=== PATIENT | female | born 1970 | race Caucasian/White ===

== ENCOUNTER 2022-06-30 17:46 | Emergency (ER) | payer BC, SELFPAY ==
--- NOTE | ~2022-06-30 | CT_ITS ---
EXAMINATION: CT HEAD WITHOUT CONTRAST CLINICAL INFORMATION: Fall. Seizure. COMPARISON: CT head 09/29/2013 TECHNIQUE: Contiguous axial imaging was performed from the skull base to vertex without intravenous administration of contrast. Coronal and sagittal reformatted images are performed at the CT scanner. [This CT examination was performed using dose optimization techniques as appropriate, variously including the following: *Automated exposure control *Adjustment of mA and/or kV according to patient size (this includes techniques or standardized protocols for targeted exams where dose is matched to indication/reason for exam; i.e. extremities or head) *Use of iterative reconstruction technique] DLP: 617 mGy-cm. FINDINGS: There is no evidence of acute intracranial hemorrhage or territorial infarction. No abnormal mass-effect or midline shift is seen. [place] to white matter differentiation is well preserved. No extra-axial fluid collections are identified. The ventricles are normal in size. There is no abnormal attenuation within the brain parenchyma. Vascular calcifications of the internal carotid arteries bilaterally. There is no osseous abnormality. Complete opacification of right sphenoid sinus and near-complete opacification left sphenoid sinus. There are calcifications in both of these sinuses related to the soft tissue likely chronic sinus disease. CT/CT head/brain wo IV con IMPRESSION: 1. No acute intracranial pathology. 2. Sinus disease.
--- NOTE | ~2022-06-30 | XR_ITS ---
EXAMINATION: XR CHEST CLINICAL INFORMATION: Seizure COMPARISON: 09/18/2014 TECHNIQUE: Frontal view of the chest was obtained. FINDINGS: The lungs are well expanded. There is no focal consolidation, edema, or effusion. No pneumothorax. The cardiomediastinal silhouette is within normal limits. No acute osseous abnormality. XR/XR chest 1V IMPRESSION: No acute pulmonary disease.
[2022-06-30 17:54] VITALS: BP 141/69; BP 148/70; PULSE 90; PULSE 96; RESP 16; TEMP 37; O2SAT 97; O2SAT 99; BMI 36.0
--- NOTE | 2022-06-30 19:11 | PC.NURSE ---
assumed care of pt
[2022-06-30 20:25] VITALS: BP 131/80; PULSE 96; RESP 16; TEMP 36.6; O2SAT 96
[2022-06-30 20:41] LABS: MANUAL DIFF FLAG NO
[2022-06-30 20:42] LABS: Basophils Percent Auto 0.3 % (0-2); Eosinophils Absolute Auto 0.1 X10*3/uL (0.0-0.4); Hematocrit 40.5 % (37.0-47.0); Hemoglobin 14.1 g/dl (12.0-16.0); Imm Gran Abs Auto 0.02 X10*3/uL (0.00-0.03); Imm Gran Pct Auto 0.2 % (0.0-0.4); Lymphocytes Percent Auto 28.2 % (20-40); Mean Corpuscular HGB Conc 34.8 g/dl (31.0-35.0); Mean Corpuscular Hemoglobin 29.3 pg (27.0-33.0); Mean Platelet Volume 9.9 fL (9.4-12.3); Monocytes Absolute Auto 0.7 X10*3/uL (0.1-1.2); Monocytes Percent Auto 6.6 % (2-11); Neutrophils Absolute Auto 6.8 x10*3/uL (2.0-8.3); Neutrophils Percent Auto 63.7 % (45-73); Platelet Count 232 X10*3/uL (160-400); Red Blood Count 4.82 X10*6/uL (4.20-5.50); Red Cell Distribution Width 12.9 % (11.0-16.0); White Blood Count 10.7 X10*3/uL (4.8-10.8)
[2022-06-30 20:59] LABS: Anion Gap 15 (12-20); Blood Urea Nitrogen 16 mg/dL (9-16); Calcium 9.5 mg/dL (8.4-10.2); Carbon Dioxide 24 mmol/L (22-29); Chloride 104 mmol/L (96-108); Creatinine Clr Calc Pharmacy 96.9; Estimated Glomerular Filt Rate > 60; Glucose Random 232 mg/dL (60-115); Sodium 139 mmol/L (135-145)
--- NOTE | 2022-06-30 20:59 | PC.NURSE ---
pt resting quietly while service at bedside no apparent distress
--- NOTE | 2022-06-30 21:09 | PC.NURSE ---
prior to today pt states that she hasnt had a seizure in 5 mos; pt states not taking seizure meds in the last few days
[2022-06-30 21:19] LABS: Influenza A PCR NEGATIVE (Negative); Influenza B PCR NEGATIVE (Negative); Resp Syncy Virus RNA Qual PCR NEGATIVE (Negative); SARS COV2 PCR INHOUSE NEGATIVE (Negative)
[2022-06-30 21:44] LABS: Appearance Urine Cloudy; Color Urine Yellow; Glucose Urine UA 500 mg/dL (Negative); Leukocyte Esterase Urine Negative (Negative); Nitrite Urine Negative (Negative); PH 5.5 (5.0-9.0); Specific Gravity - Urine 1.025 (1.005-1.025); Urine Blood Negative (Negative); Urine Ketones 15 mg/dL (Negative); Urine Protein Negative (Neg-Trace)
--- NOTE | 2022-06-30 21:55 | ED.SEIZURE ---
HPI - Seizure General Chief Complaint: Seizure Stated Complaint: Seizures per EMS Time Seen by Provider: 06/30/22 21:18 Source: patient Mode of arrival: EMS Limitations: no limitations History of Present Illness HPI Narrative: Patient with history of seizure disorder, diabetes anxiety on Vimpat and Klonopin missed her 3 doses of Vimpat in last 3 days as she been homeless and unable to get her medication earlier today she had a seizure while coming back from the bathroom fell down hitting her head to the ground had 10 by it and broke her upper incisor, patient did not have any seizure for last 6 months on Vimpat and Klonopin. No fever no chills no cough no other symptoms Seizure History: Yes Place: [facility] Related Data Previous Rx's Medication Instructions Recorded lacosamide 10 mg/mL oral solution 350 mg (35 mL) PO BID #2,100 mL 07/01/22 (Vimpat) Allergies Allergy/AdvReac Type Severity Reaction Status Date / Time No Known Allergies Allergy Verified 06/30/22 18:07 Review of Systems Review of Systems: Yes all other systems are reviewed and are negative [facility] Past Medical History Medical History (Updated 07/01/22 @ 00:18 by Satish Palmer MD) Anxiety disorder Epilepsy Social History Social History Alcohol intake: never Smoked in Last 30 Days: No Use of substances other than those prescribed or required for medical reasons: No Advance Directives: No Advance Directives Information Provided: No Patient : No Physical Exam Vital Signs: Vital Signs: Last Vital Signs Temp 97.9 F 06/30/22 20:25 Pulse 96 06/30/22 20:25 Resp 16 06/30/22 20:25 BP 131/80 06/30/22 20:25 Pulse Ox 96 06/30/22 20:25 O2 Del Method 06/30/22 20:25 BMI result Body Mass Index 36.0 Appearance: Alert. Oriented X3. No acute distress. Eyes: PERRLA, No Nystagmus ENT: Pharynx normal. Oral Mucosa moist small tongue bite at the tip, broken upper central incisor Neck: Normal inspection. Neck supple. CVS: Normal heart rate and rhythm. Pulses normal. Respiratory: No respiratory distress. Equal air entry bilateral, no wheezing/rales/rhonchi Abdomen: Soft and nontender. Bowel sounds are present, no mass palpable, no CVA tenderness Skin: Skin warm and dry. Normal skin color. Normal skin turgor. Extremities: No lower extremity edema. No calf tenderness Neuro: Oriented X 3. No motor deficit. No sensory deficit.No cerebellar signs , cranial nerves II-XII intact Course Reevaluation(s) Reevaluation #1: Patient had generalized tonic clonic seizure lasted for less than a minute patient is with slurred speech and drowsy after the seizure. Patient just received the medications Time: 23:05 Medications Administered Discontinued Medications Generic Name Dose Route Start Last Admin Trade Name Freq PRN Reason Stop Dose Admin Sodium Chloride 1,000 mls @ 999 mls/hr 06/30/22 22:05 07/01/22 00:12 Ns IV 06/30/22 23:05 Infused .Q1H1M ONE Infusion Lacosamide 300 mg 06/30/22 22:02 06/30/22 23:04 Lacosamide 100 Mg Tablet PO 06/30/22 22:03 300 mg ONCE ONE Administration Lorazepam 1 mg 06/30/22 22:02 06/30/22 22:54 Lorazepam 2 Mg/Ml Vial IVPUSH 06/30/22 22:03 1 mg ONCE ONE Administration Medical Decision Making Medical Decision Making [facility] Narrative: Patient with chronic seizure history acting vague homeless having repeated seizures for last 2 days will get the records from [facility] Medical records from [facility] reviewed patient advised to increase the dose of impaired to 350 mg twice daily per neurologist but patient is taking only 300 mg twice daily. Patient will be sent home with new prescription follow-up with urologist head CT scan is negative labs are stable Lab Data [facility] Lab Attestation statement: I reviewed the patient's lab results. 06/30/22 20:35 06/30/22 20:35 Labs: Lab Results 06/30/22 06/30/22 06/30/22 Range/Units 20:35 20:35 20:35 WBC 10.7 (4.8-10.8) X10*3/uL RBC 4.82 (4.20-5.50) X10*6/uL Hgb 14.1 (12.0-16.0) g/dl Hct 40.5 (37.0-47.0) % MCV 84.0 (80.0-98.0) fL MCH 29.3 (27.0-33.0) pg MCHC 34.8 (31.0-35.0) g/dl RDW 12.9 (11.0-16.0) % Plt Count 232 (160-400) X10*3/uL MPV 9.9 (9.4-12.3) fL Immature Gran % (Auto) 0.2 (0.0-0.4) % Neut % (Auto) 63.7 (45-73) % Lymph % (Auto) 28.2 (20-40) % [place] % (Auto) 6.6 (2-11) % Eos % (Auto) 1.0 (0-4) % Baso % (Auto) 0.3 (0-2) % Lymph # (Auto) 3.0 (1.2-4.9) X10*3/uL [place] # (Auto) 0.7 (0.1-1.2) X10*3/uL Eos # (Auto) 0.1 (0.0-0.4) X10*3/uL Baso # (Auto) 0.0 (0.0-0.2) X10*3/uL Abs Immat Gran (auto) 0.02 (0.00-0.03) X10*3/uL Absolute Neuts (auto) 6.8 (2.0-8.3) x10*3/uL Absolute Nucleated RBC 0.000 (0.0-0.012) X10*3/uL Nucleated RBC % (auto) 0.0 (0.0-0.2) /100WBC Sodium 139 (135-145) mmol/L Potassium 4.0 (3.3-5.1) mmol/L Chloride 104 (96-108) mmol/L Carbon Dioxide 24 (22-29) mmol/L Anion Gap 15 (12-20) BUN 16 (9-16) mg/dL Creatinine 0.76 (0.5-1.4) mg/dL Estim Creat Clear Calc 96.9 Estimated GFR > 60 Random Glucose 232 H (60-115) mg/dL Calcium 9.5 (8.4-10.2) mg/dL Urine Color Urine Appearance Urine pH (5.0-9.0) Ur Specific [place] (1.005-1.025) Urine Protein (Neg-Trace) mg/dL Urine Glucose (UA) (Negative) mg/dL Urine Ketones (Negative) mg/dL Urine Blood (Negative) Urine Nitrite (Negative) Ur Leukocyte Esterase (Negative) Influenza Type A (PCR) NEGATIVE (Negative) Influenza Type B (PCR) NEGATIVE (Negative) RSV RNA Qual (PCR) NEGATIVE (Negative) SARS-CoV-2 RNA (RT-PCR) NEGATIVE (Negative) 06/30/22 Range/Units 20:58 WBC (4.8-10.8) X10*3/uL RBC (4.20-5.50) X10*6/uL Hgb (12.0-16.0) g/dl Hct (37.0-47.0) % MCV (80.0-98.0) fL MCH (27.0-33.0) pg MCHC (31.0-35.0) g/dl RDW (11.0-16.0) % Plt Count (160-400) X10*3/uL MPV (9.4-12.3) fL Immature Gran % (Auto) (0.0-0.4) % Neut % (Auto) (45-73) % Lymph % (Auto) (20-40) % [place] % (Auto) (2-11) % Eos % (Auto) (0-4) % Baso % (Auto) (0-2) % Lymph # (Auto) (1.2-4.9) X10*3/uL [place] # (Auto) (0.1-1.2) X10*3/uL Eos # (Auto) (0.0-0.4) X10*3/uL Baso # (Auto) (0.0-0.2) X10*3/uL Abs Immat Gran (auto) (0.00-0.03) X10*3/uL Absolute Neuts (auto) (2.0-8.3) x10*3/uL Absolute Nucleated RBC (0.0-0.012) X10*3/uL Nucleated RBC % (auto) (0.0-0.2) /100WBC Sodium (135-145) mmol/L Potassium (3.3-5.1) mmol/L Chloride (96-108) mmol/L Carbon Dioxide (22-29) mmol/L Anion Gap (12-20) BUN (9-16) mg/dL Creatinine (0.5-1.4) mg/dL Estim Creat Clear Calc Estimated GFR Random Glucose (60-115) mg/dL Calcium (8.4-10.2) mg/dL Urine Color Yellow Urine Appearance Cloudy Urine pH 5.5 (5.0-9.0) Ur Specific [place] 1.025 (1.005-1.025) Urine Protein Negative (Neg-Trace) mg/dL Urine Glucose (UA) 500 H (Negative) mg/dL Urine Ketones 15 (Negative) mg/dL Urine Blood Negative (Negative) Urine Nitrite Negative (Negative) Ur Leukocyte Esterase Negative (Negative) Influenza Type A (PCR) (Negative) Influenza Type B (PCR) (Negative) RSV RNA Qual (PCR) (Negative) SARS-CoV-2 RNA (RT-PCR) (Negative) External Record Review External record reviewed: Inpatient record Patient's records from [facility] reviewed admitted on 04/12/2022 with previous stay in in 03/04 at [facility] for 6 weeks for placement does have history of psychiatric issues including prior history of suicidal ideation patient lacosamide does supposed to be increased to 350 mg twice daily but patient still using 300 mg twice daily awaiting for permanent housing Discharge Plan Discharge Clinical Impression: Epileptic seizure Patient Disposition: Home, Self-Care Instructions: Epilepsy (ED) Additional Instructions: Continue to take Vimpat Increase the dose to 350 mg(35ml) twice daily as instructed by your neurologist Follow-up with PCP/neurologist Prescriptions: New lacosamide [Vimpat] 10 mg/mL solution 350 mg PO BID Qty: 2100 0RF
[2022-06-30] MEDS: LORazepam 2 MG/ML VIAL 1 MG IVPUSH (22:54)
[2022-06-30] MEDS: 0.9 % Sodium Chloride 1,000 ML 999 ML IV (22:55)
[2022-06-30] MEDS: Lacosamide 100 MG TABLET 300 MG PO (23:04)
== END 2022-07-01 00:42 | disposition home or self-care (01) ==
PROVIDERS: Emergency Provider Internal Medicine
DX: G40.909 Epilepsy, unspecified, not intractable, without status epilepticus (principal); Z20.822 Contact with and (suspected) exposure to COVID-19; Z20.828 Contact with and (suspected) exposure to other viral communicable diseases; F41.9 Anxiety disorder, unspecified; E11.9 Type 2 diabetes mellitus without complications; Z79.899 Other long term (current) drug therapy
CPT/HCPCS: 0241U; 36415; 70450; 71045; 80048; 81003; 85025; 96361; 96374; 99284; J2060

== ENCOUNTER 2022-07-02 20:36 | Emergency (ER) | payer BC, MEDICARE, SELFPAY ==
--- NOTE | 2022-07-02 | ECG_ITS ---
Test Reason : SEIZURE Blood Pressure : / mmHG Vent. Rate : 104 BPM Atrial Rate : 104 BPM P-R Int : 154 ms QRS Dur : 078 ms QT Int : 336 ms P-R-T Axes : 053 020 037 degrees QTc Int : 441 ms Sinus tachycardia Otherwise normal ECG When compared with ECG of 25-NOV-2014 15:47, No significant change was found Referred By: Generic ED Physician Electronically Signed By:ORLANDO LAWLER
[2022-07-02 20:49] VITALS: BP 142/68; BP 163/82; PULSE 109; PULSE 90; RESP 20; TEMP 37.1; O2SAT 95
[2022-07-02 20:55] VITALS: BMI 36.0
[2022-07-02 21:23] LABS: Glucose, Whole Blood 366 mg/dL (60-115)
--- NOTE | 2022-07-02 21:26 | ED_ITS ---
HPI - Seizure General Chief Complaint: Seizure Stated Complaint: seizures Time Seen by Provider: 07/02/22 21:17 Source: patient Mode of arrival: ambulatory Limitations: no limitations History of Present Illness HPI Narrative: Patient history of anxiety bipolar disorder and epilepsy on Vimpat supposed to be 350 mg twice daily has problems with home issues but she says that she has a place to stay. Neurologist in [facility]. Was at [facility] for 6 weeks for placement in 03/04 then patient went to [facility] patient was seen here on 2 days ago for same when she had seizure and she fell at tongue bite at the tip of the tongue. Patient was told to increase the dose of the bed to 350 mg twice daily per neurologist last year but she has not done it yet per records patient is noncompliant to medications has some psychogenic issues today she comes here as she had 2 seizures earlier while she is asleep per patient she cannot take the medication as she has tongue bite but she is a ble to eat Seizure History: Yes Related Data Previous Rx's Medication Instructions Recorded lacosamide 10 mg/mL oral solution 350 mg (35 mL) PO BID #2,100 mL 07/01/22 (Vimpat) Allergies Allergy/AdvReac Type Severity Reaction Status Date / Time No Known Allergies Allergy Verified 07/02/22 20:58 Review of Systems Review of Systems: Yes all other systems are reviewed and are negative [facility] Past Medical History Medical History Anxiety disorder Epilepsy Social History Social History Alcohol intake: never Advance Directives: No Advance Directives Information Provided: No Physical Exam Vital Signs: Vital Signs: Last Vital Signs Temp 98.8 F 07/02/22 20:49 Pulse 109 H 07/02/22 20:49 Resp 20 07/02/22 20:49 BP 163/82 H 07/02/22 20:49 Pulse Ox 95 07/02/22 20:49 O2 Del Method 07/02/22 20:49 BMI result Body Mass Index 36.0 Appearance: Alert. Oriented X3. No acute distress. Anxious Eyes: PERRLA, No Nystagmus ENT: Pharynx normal. Oral Mucosa moist healing tongue bite at the tip of the tongue Neck: Normal inspection. Neck supple. No stridor CVS: Normal heart rate and rhythm. Pulses normal. Respiratory: No respiratory distress. Equal air entry bilateral, no wheezing/rales/rhonchi Abdomen: Soft and nontender. Bowel sounds are present, no mass palpable, no CVA tenderness Skin: Skin warm and dry. Normal skin color. Normal skin turgor. Extremities: No lower extremity edema. No calf tenderness Neuro: Oriented X 3. No motor deficit. No sensory deficit.No cerebellar signs , cranial nerves II-XII intact Medications Administered Discontinued Medications Generic Name Dose Route Start Last Admin Trade Name Freq PRN Reason Stop Dose Admin Lacosamide 350 mg 07/02/22 21:26 07/02/22 21:32 Lacosamide 100 Mg Tablet PO 07/02/22 21:27 200 mg ONCE ONE Administration Lorazepam 2 mg 07/02/22 21:48 07/02/22 22:00 Lorazepam 2 Mg/Ml Vial IM 07/02/22 21:49 2 mg STAT STA Administration Medical Decision Making Medical Decision Making [facility] Narrative: Patient with recurrent epilepsy with bipolar anxiety disorder with noncompliance of medication patient was given extra dose of Vimpat a night patient has a place to stay tonight and will follow with neurologist in the morning Lab Data Labs: Lab Results 07/02/22 Range/Units 21:17 POC Glucose 366 H* (60-115) mg/dL Discharge Plan Discharge Clinical Impression: Generalized seizure Patient Disposition: Home, Self-Care Instructions: Recurrent Seizures in Adults (ED) 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
[2022-07-02] MEDS: Lacosamide 100 MG TABLET 350 MG PO (21:32)
--- NOTE | 2022-07-02 21:57 | PC.NURSE ---
patient spit out 150mg dose of the 350mg vimpat she was supposed to receive. patient only received 200mg po. obtaining new order of 150mg from MD in order to give pt full dose. patient gagging up medication saying she cant swallow. airway patent and patient swallowed first 200mg dose with no issues.
[2022-07-02] MEDS: LORazepam 2 MG/ML VIAL IM (22:00)
[2022-07-02] MEDS: Lacosamide 100 MG TABLET 150 MG PO (22:16)
== END 2022-07-02 22:58 | disposition home or self-care (01) ==
PROVIDERS: Emergency Provider Internal Medicine
DX: R56.9 Unspecified convulsions (principal); Z79.899 Other long term (current) drug therapy; Z91.14 Patient's other noncompliance with medication regimen
CPT/HCPCS: 82947; 93005; 96372; 99283; 99284; J2060

== ENCOUNTER 2022-07-11 16:07 | Emergency (ER) | payer BC, MEDICARE, SELFPAY ==
[2022-07-11 16:15] VITALS: BP 168/75; PULSE 87; RESP 16; TEMP 36.8; O2SAT 99; BMI 34.9
--- NOTE | 2022-07-11 16:17 | PC.NURSE ---
51 y/o F BIBA from [facility] with increased anxiety, hypertension, high blood sugar, pseudoseizures, and other complaints. was recently seen here for same. VSS, neuros intact. awaiting Md mendez
--- NOTE | 2022-07-11 16:47 | ED_ITS ---
HPI - General Adult General Chief complaint: General Medical Stated complaint: seizure? Time Seen by Provider: 07/11/22 16:16 Source: patient Mode of arrival: ambulatory History of Present Illness HPI narrative: 51-year-old female with underlying seizure disorder currently being followed at a [facility] Neurology office, Dr. Escobar, and patient is stating that she has continue to take her 350 mg of lacosamide b.i.d. as prescribed. She denies any recent fever, chills and states that she started to have an aura and called 911 letting them know that she was starting to have a seizure. She denies any tongue biting or incontinence at this time and does not appear to be postictal. Related Data Previous Rx's Medication Instructions Recorded lacosamide 10 mg/mL oral solution 350 mg (35 mL) PO BID #2,100 mL 07/01/22 (Vimpat) Allergies Allergy/AdvReac Type Severity Reaction Status Date / Time No Known Allergies Allergy Verified 07/02/22 20:58 Review of Systems Review of Systems: Pertinent positives and negatives as stated in HPI [facility] Past Medical History Source: nursing notes reviewed Medical History Anxiety disorder Epilepsy Social History Social History Alcohol intake: never Advance Directives: No Advance Directives Information Provided: Yes Physical Exam ED Vital Signs: Vital Signs - 24 hr 07/11/22 16:15 Temperature 98.2 F Pulse Rate 87 Respiratory Rate 16 Blood Pressure 168/75 H Pulse Oximetry 99 Oxygen Delivery Method Room Air BMI result Body Mass Index 34.9 VITAL SIGNS: Reviewed. GENERAL: Well developed, well nourished, in no acute distress. HEAD: Normocephalic/atraumatic, no contusions/abrasions EYES: PERRLA, EOMI, no nystagmus OROPHARYNX: no oral lesions noted, posterior pharynx clear, poor dentition, no evidence of oral cavity trauma NECK: Supple, no adenopathy LUNGS: Normal breath sounds. No adventitious sounds or accessory muscle use. SpO2<99> CARDIOVASCULAR: Regular rate and rhythm without noted murmurs ABDOMEN: Soft, non-tender, non-distended with bowel sounds. MUSCULOSKELETAL: No tenderness, deformities, or effusions noted on gross ins pection, there are no injuries noted to the elbows, hands, knees, feet/ankles, face. EXTREMITIES: No cyanosis, clubbing or edema. SKIN: Inspection of the skin reveals no rashes, abrasions/lacerations NEUROLOGIC: Alert and oriented x 4. Strength and sensation to light touch were grossly intact x 4. Medications Administered Discontinued Medications Generic Name Dose Route Start Last Admin Trade Name Freq PRN Reason Stop Dose Admin Insulin Human Lispro 5 unit 07/11/22 18:08 07/11/22 18:31 Insulin Lispro 100 Unit/Ml 3 Ml Vial SUBCUT 07/11/22 18:09 5 unit ONCE ONE Administration Medical Decision Making Medical Decision Making MDM Narrative: This is a 51-year-old female with current stressors in her life to include an ongoing divorce that she characterizes as difficult. She is currently homeless and is receiving [facility] who have placed her in a motel. Patient states that she has plenty of medication and denies any constitutional symptoms and reports compliance with her medication. She did not have any overt evidence of injuries secondary to her self described epileptic event and we will proceed with basic labs to include urinalysis and consult care team to help arrange for transportation back to the motel. There is no indication at this time for further imaging. Patient is noted to be hyperglycemic and states that she ate just prior to coming in. She is a known diabetic and takes insulin injections for her condition. Patient states that she has plenty of medications for both the diabetes and her seizure condition. I will give her referral to follow-up with our neurology department. Differential Diagnosis Please see the discussion above Consult Healthcare Provider Management of the patient was discussed with: Phlebotomy Manager [id number]: Consultation to care team to arrange for transport back to the motel. Lab Data Please see the discussion above 07/11/22 17:09 07/11/22 17:09 Labs: Lab Results 07/11/22 07/11/22 07/11/22 Range/Units 17:09 17:09 17:09 WBC 7.0 (4.8-10.8) X10*3/uL RBC 4.53 (4.20-5.50) X10*6/uL Hgb 13.3 (12.0-16.0) g/dl Hct 39.2 (37.0-47.0) % MCV 86.5 (80.0-98.0) fL MCH 29.4 (27.0-33.0) pg MCHC 33.9 (31.0-35.0) g/dl RDW 13.2 (11.0-16.0) % Plt Count 219 (160-400) X10*3/uL MPV 10.0 (9.4-12.3) fL Immature Gran % (Auto) 0.1 (0.0-0.4) % Neut % (Auto) 53.1 (45-73) % Lymph % (Auto) 37.2 (20-40) % [place] % (Auto) 7.0 (2-11) % Eos % (Auto) 2.0 (0-4) % Baso % (Auto) 0.6 (0-2) % Lymph # (Auto) 2.6 (1.2-4.9) X10*3/uL [place] # (Auto) 0.5 (0.1-1.2) X10*3/uL Eos # (Auto) 0.1 (0.0-0.4) X10*3/uL Baso # (Auto) 0.0 (0.0-0.2) X10*3/uL Abs Immat Gran (auto) 0.01 (0.00-0.03) X10*3/uL Absolute Neuts (auto) 3.7 (2.0-8.3) x10*3/uL Absolute Nucleated RBC 0.000 (0.0-0.012) X10*3/uL Nucleated RBC % (auto) 0.0 (0.0-0.2) /100WBC Sodium 142 (135-145) mmol/L Potassium 4.3 (3.3-5.1) mmol/L Chloride 106 (96-108) mmol/L Carbon Dioxide 27 (22-29) mmol/L Anion Gap 13 (12-20) BUN 8 L (9-16) mg/dL Creatinine 0.74 (0.5-1.4) mg/dL Estim Creat Clear Calc 112.4 Estimated GFR > 60 POC Glucose (60-115) mg/dL Random Glucose 376 H* (60-115) mg/dL Calcium 8.8 D (8.4-10.2) mg/dL Total Bilirubin 0.3 (0.0-1.0) mg/dL AST 21 (5-31) U/L ALT 22 (0-31) U/L Alkaline Phosphatase 196 H (39-117) U/L Total Protein 6.8 (6.5-8.0) g/dL Albumin 4.2 (3.5-5.0) g/dL Urine Color Yellow Urine Appearance Clear Urine pH 6.0 (5.0-9.0) Ur Specific [place] 1.025 (1.005-1.025) Urine Protein Negative (Neg-Trace) mg/dL Urine Glucose (UA) >=1000 H (Negative) mg/dL Urine Ketones Negative (Negative) mg/dL Urine Blood Negative (Negative) Urine Nitrite Negative (Negative) Ur Leukocyte Esterase Negative (Negative) Urine RBC 0-2 (0-2) /HPF Urine WBC 0-5 (0-5) /HPF Ur Squamous Epith Cells 6-10 (0-2) /HPF Urine Bacteria None Seen (None Seen) Hyaline Casts 0-2 (0-2) /LPF Urine Opiates Screen (Not Detect) Urine Fentanyl Screen (Not Detect) Ur Barbiturates Screen (Not Detect) Ur Phencyclidine Scrn (Not Detect) Ur Amphetamines Screen (Not Detect) U Benzodiazepines Scrn (Not Detect) Urine Cocaine Screen (Not Detect) U Marijuana (THC) Screen (Not Detect) 07/11/22 07/11/22 Range/Units 17:09 19:32 WBC (4.8-10.8) X10*3/uL RBC (4.20-5.50) X10*6/uL Hgb (12.0-16.0) g/dl Hct (37.0-47.0) % MCV (80.0-98.0) fL MCH (27.0-33.0) pg MCHC (31.0-35.0) g/dl RDW (11.0-16.0) % Plt Count (160-400) X10*3/uL MPV (9.4-12.3) fL Immature Gran % (Auto) (0.0-0.4) % Neut % (Auto) (45-73) % Lymph % (Auto) (20-40) % [place] % (Auto) (2-11) % Eos % (Auto) (0-4) % Baso % (Auto) (0-2) % Lymph # (Auto) (1.2-4.9) X10*3/uL [place] # (Auto) (0.1-1.2) X10*3/uL Eos # (Auto) (0.0-0.4) X10*3/uL Baso # (Auto) (0.0-0.2) X10*3/uL Abs Immat Gran (auto) (0.00-0.03) X10*3/uL Absolute Neuts (auto) (2.0-8.3) x10*3/uL Absolute Nucleated RBC (0.0-0.012) X10*3/uL Nucleated RBC % (auto) (0.0-0.2) /100WBC Sodium (135-145) mmol/L Potassium (3.3-5.1) mmol/L Chloride (96-108) mmol/L Carbon Dioxide (22-29) mmol/L Anion Gap (12-20) BUN (9-16) mg/dL Creatinine (0.5-1.4) mg/dL Estim Creat Clear Calc Estimated GFR POC Glucose 268 H (60-115) mg/dL Random Glucose (60-115) mg/dL Calcium (8.4-10.2) mg/dL Total Bilirubin (0.0-1.0) mg/dL AST (5-31) U/L ALT (0-31) U/L Alkaline Phosphatase (39-117) U/L Total Protein (6.5-8.0) g/dL Albumin (3.5-5.0) g/dL Urine Color Urine Appearance Urine pH (5.0-9.0) Ur Specific [place] (1.005-1.025) Urine Protein (Neg-Trace) mg/dL Urine Glucose (UA) (Negative) mg/dL Urine Ketones (Negative) mg/dL Urine Blood (Negative) Urine Nitrite (Negative) Ur Leukocyte Esterase (Negative) Urine RBC (0-2) /HPF Urine WBC (0-5) /HPF Ur Squamous Epith Cells (0-2) /HPF Urine Bacteria (None Seen) Hyaline Casts (0-2) /LPF Urine Opiates Screen Not Detected (Not Detect) Urine Fentanyl Screen Not Detected (Not Detect) Ur Barbiturates Screen Not Detected (Not Detect) Ur Phencyclidine Scrn Not Detected (Not Detect) Ur Amphetamines Screen Not Detected (Not Detect) U Benzodiazepines Scrn Not Detected (Not Detect) Urine Cocaine Screen Not Detected (Not Detect) U Marijuana (THC) Screen Not Detected (Not Detect) External Record Review External record reviewed: Outpatient record and Prior outpatient labs Critical Care Time Critical Care Time Critical Care Time: Yes Total Critical Care Time: 30 Attestation: I personally attest to this time spent taking care of the patient. Discharge Plan Discharge Clinical Impression: Seizure, Hyperglycemia due to diabetes mellitus Patient Disposition: Home, Self-Care Instructions: Recurrent Seizures in Adults (ED), Diabetic Hyperglycemia (ED) Additional Instructions: 1. Resume all home medications as prescribed. 2. I have given you a referral to follow-up with our neurology department in case you are having difficult to with your so. However, I strongly recommend that you call the office of your neurologist 1st thing in the morning. Return to the ER for any worsening symptoms. Prescriptions: No Action lacosamide [Vimpat] 10 mg/mL solution 350 mg PO BID Qty: 2100 0RF Referrals: Randal Bergman MD [Physician] - (51-year-old female with recurrent epileptic seizures, currently on lacosamide b.i.d. inconsistent follow-up with Neurology at [facility], Dr. Escobar and suspect this may be due to limitations on transportation.)
[2022-07-11 17:21] LABS: MANUAL DIFF FLAG NO
[2022-07-11 17:24] LABS: Basophils Percent Auto 0.6 % (0-2); Eosinophils Absolute Auto 0.1 X10*3/uL (0.0-0.4); Hematocrit 39.2 % (37.0-47.0); Hemoglobin 13.3 g/dl (12.0-16.0); Imm Gran Abs Auto 0.01 X10*3/uL (0.00-0.03); Imm Gran Pct Auto 0.1 % (0.0-0.4); Lymphocytes Absolute Auto 2.6 X10*3/uL (1.2-4.9); Lymphocytes Percent Auto 37.2 % (20-40); Mean Corpuscular HGB Conc 33.9 g/dl (31.0-35.0); Mean Corpuscular Hemoglobin 29.4 pg (27.0-33.0); Mean Corpuscular Volume 86.5 fL (80.0-98.0); Monocytes Absolute Auto 0.5 X10*3/uL (0.1-1.2); Neutrophils Absolute Auto 3.7 x10*3/uL (2.0-8.3); Neutrophils Percent Auto 53.1 % (45-73); Platelet Count 219 X10*3/uL (160-400); Red Blood Count 4.53 X10*6/uL (4.20-5.50); Red Cell Distribution Width 13.2 % (11.0-16.0)
[2022-07-11 17:26] LABS: Appearance Urine Clear; Color Urine Yellow; Glucose Urine UA >=1000 mg/dL (Negative); Leukocyte Esterase Urine Negative (Negative); Nitrite Urine Negative (Negative); Specific Gravity - Urine 1.025 (1.005-1.025); UMIC TRIGGER UACC YES; Urine Blood Negative (Negative); Urine Ketones Negative (Negative); Urine Protein Negative (Neg-Trace)
[2022-07-11 17:34] LABS: Amphetamine Screen Urine Not Detected (Not Detect); Barbiturates, Urine Not Detected (Not Detect); Benzodiazepines Screen Urine Not Detected (Not Detect); Cannabinoid Screen Urine Not Detected (Not Detect); Cocaine Screen Urine Not Detected (Not Detect); Fentanyl, urine Not Detected (Not Detect); Opiate Screen Urine Not Detected (Not Detect); Phencyclidine Screen Urine Not Detected (Not Detect)
[2022-07-11 17:50] LABS: Bacteria Urine None Seen (None Seen); Hyaline Casts Urine 0-2 /LPF (0-2); RBC Urine 0-2 /HPF (0-2); WBC Urine 0-5 /HPF (0-5)
[2022-07-11 18:03] LABS: Alanine Aminotransferase 22 U/L (0-31); Albumin Level 4.2 g/dL (3.5-5.0); Alkaline Phosphatase 196 U/L (39-117); Anion Gap 13 (12-20); Aspartate Amino Transferase 21 U/L (5-31); Bilirubin Total 0.3 mg/dL (0.0-1.0); Blood Urea Nitrogen 8 mg/dL (9-16); Calcium 8.8 mg/dL (8.4-10.2); Carbon Dioxide 27 mmol/L (22-29); Chloride 106 mmol/L (96-108); Creatinine Clr Calc Pharmacy 112.4; Estimated Glomerular Filt Rate > 60; Glucose Random 376 mg/dL (60-115); Potassium 4.3 mmol/L (3.3-5.1); Sodium 142 mmol/L (135-145); Total Protein 6.8 g/dL (6.5-8.0)
[2022-07-11] MEDS: Insulin Lispro 100 UNIT/ML 3 ML VIAL SUBCUT (18:31)
[2022-07-11 19:36] LABS: Glucose, Whole Blood 268 mg/dL (60-115)
[2022-07-11 23:47] VITALS: BP 142/65; PULSE 79; RESP 17; TEMP 36.4; O2SAT 96
--- NOTE | 2022-07-12 02:16 | PC.NURSE ---
Assumed care of pt. 1900. Pt. resting in bed at that time. Pt. D/C'd, however, pt. reports having no transportation to get home. automatic cigar wrapper tender attempted to get pt. a LYFT ride home, however, no rides were available. Pt. tried calling her brother, however, he didn't answer the phone and she left a message. Will try again for a LYFT at 0600.
[2022-07-12 05:35] LABS: Estimated Average Glucose 220 mg/dL; Hemoglobin A1c % 9.3 %
== END 2022-07-12 06:12 | disposition home or self-care (01) ==
PROVIDERS: Emergency Provider Student in an Organized Health Care Education/Training Program
DX: R56.9 Unspecified convulsions (principal); E11.65 Type 2 diabetes mellitus with hyperglycemia; Z79.899 Other long term (current) drug therapy
CPT/HCPCS: 36415; 80053; 80307; 81001; 82947; 83036; 85025; 99284

== ENCOUNTER 2022-07-28 12:03 | Emergency (ER) | payer BC, MEDICARE, SELFPAY ==
[2022-07-28 12:05] VITALS: BP 134/73; PULSE 86; RESP 20; TEMP 36.7; O2SAT 99; BMI 36.0
--- OUTSIDE RECORDS SUMMARY | 2022-07-28 12:31 | XMS_ITS ---
:1970 Author Care Team Providers Name Role Phone DR. WILLI OWUSU Referring Provider [phone] Allergies None recorded. Medications None recorded. Problems None recorded. Procedures None recorded. Results Lab Results None recorded. Past Encounters None recorded. Social History None recorded. Vaccine List None recorded. Plan of Care Reminders Provider Appointments None recorded. ? ? Lab None recorded. ? ? Referral None recorded. ? ? Procedures None recorded. ? ? Surgeries None recorded. ? ? Imaging None recorded. ? ? Vitals None recorded.
--- NOTE | 2022-07-28 12:54 | ED_ITS ---
HPI - Seizure General Chief Complaint: Seizure Stated Complaint: Poss seizure per EMS Time Seen by Provider: 07/28/22 12:54 Source: patient and EMS Mode of arrival: EMS Limitations: no limitations History of Present Illness HPI Narrative: 51 yo female with history of seizure disorder on Vimpat (follows w/ Neuro at [facility]), history of anxiety on Klonopin who presents to the ER for evaluation of a probable seizure at home. Patient has been feeling unwell for the last couple of days, feeling like his seizure was coming on. She reports today she was feeling dizzy, she felt an aura like a seizure was coming on. She took 2 doses of her Klonopin like her neurologist instructed late on her bed. She states when she woke up she felt weak and dizzy. She felt like she was going to pass out. She was unable to sit at the edge of the bed or stand up. She called 911. She states she usually feels lethargy and tiredness after seizures but usually can walk around. She tried calling her neurologist yesterday when she was feeling off but she has not heard back from them yet. She reports medication compliance with Vimpat. complaint: possible seizure Onset (ago): day(s) Description of Episode: post-event confusion Witnessed: No Trauma: No Seizure History: Yes Possible Precipitating Event: lack of sleep and stress Associated symptoms: weakness Treatments prior to arrival: benzodiazepines Related Data Previous Rx's Medication Instructions Recorded lacosamide 10 mg/mL oral solution 350 mg (35 mL) PO BID #2,100 mL 07/01/22 (Vimpat) Allergies Allergy/AdvReac Type Severity Reaction Status Date / Time No Known Allergies Allergy Verified 07/02/22 20:58 Review of Systems Review of Systems: Yes all other systems are reviewed and are negative [facility], [facility] Past Medical History Medical History Anxiety disorder Epilepsy Social History Social History Alcohol intake: never Smoked in Last 30 Days: No Use of substances other than those prescribed or required for medical reasons: No Advance Directives: No Advance Directives Information Provided: Yes Physical Exam Vital Signs: Vital Signs: Last Vital Signs Temp 98.0 F 07/28/22 12:05 Pulse 83 07/28/22 14:11 Resp 16 07/28/22 14:11 BP 101/67 07/28/22 14:11 Pulse Ox 97 07/28/22 14:11 O2 Del Method 07/28/22 14:11 BMI result Body Mass Index 36.0 Appearance: Alert. Oriented X3. No acute distress. Eyes: Pupils equal, round and reactive to light. ENT: Pharynx normal. Neck: Normal inspection. Neck supple. CVS: Normal heart rate and rhythm. Pulses normal. Respiratory: No respiratory distress. Breath sounds normal. Abdomen: Soft and nontender. +BS x4 Skin: Skin warm and dry. Normal skin color. Normal skin turgor. No rashes. Extremities: No lower extremity edema. Neuro: Oriented X 3. Slowed speech but appropriate. No motor deficit. No sensory deficit. Medical Decision Making Medical Decision Making [facility] Narrative: 51 yo female with history of seizure disorder on Vimpat (follows w/ Neuro at [facility]), history of anxiety on Klonopin, who presents for evaluation status post seizure which occurred at noon today. Labs performed today were unremarkable. Patient is not orthostatic. Discussed with patient that she has had multiple visits to the ER for seizures this year, and that she needs to have close follow up with her neurologist as she may need more testing and medication management. Patient understands and agrees with plan. Differential Diagnosis Differential Diagnoses: The differential diagnosis associated with the presentation includes epilepsy, electrolyte abnormality, dehydration, tonic clonic seizure Lab Data [facility] Lab Attestation statement: I reviewed the patient's lab results. 07/28/22 13:12 07/28/22 13:12 Labs: Lab Results 07/28/22 07/28/22 07/28/22 Range/Units 12:52 12:52 13:12 WBC 8.6 (4.8-10.8) X10*3/uL RBC 4.46 (4.20-5.50) X10*6/uL Hgb 13.1 (12.0-16.0) g/dl Hct 37.1 (37.0-47.0) % MCV 83.2 (80.0-98.0) fL MCH 29.4 (27.0-33.0) pg MCHC 35.3 H (31.0-35.0) g/dl RDW 13.0 (11.0-16.0) % Plt Count 231 (160-400) X10*3/uL MPV 9.6 (9.4-12.3) fL Immature Gran % (Auto) 0.2 (0.0-0.4) % Neut % (Auto) 61.7 (45-73) % Lymph % (Auto) 28.6 (20-40) % [place] % (Auto) 6.5 (2-11) % Eos % (Auto) 2.6 (0-4) % Baso % (Auto) 0.4 (0-2) % Lymph # (Auto) 2.5 (1.2-4.9) X10*3/uL [place] # (Auto) 0.6 (0.1-1.2) X10*3/uL Eos # (Auto) 0.2 (0.0-0.4) X10*3/uL Baso # (Auto) 0.0 (0.0-0.2) X10*3/uL Abs Immat Gran (auto) 0.02 (0.00-0.03) X10*3/uL Absolute Neuts (auto) 5.3 (2.0-8.3) x10*3/uL Absolute Nucleated RBC 0.000 (0.0-0.012) X10*3/uL Nucleated RBC % (auto) 0.0 (0.0-0.2) /100WBC Sodium (135-145) mmol/L Potassium (3.3-5.1) mmol/L Chloride (96-108) mmol/L Carbon Dioxide (22-29) mmol/L Anion Gap (12-20) BUN (9-16) mg/dL Creatinine (0.5-1.4) mg/dL Estim Creat Clear Calc Estimated GFR POC Glucose (60-115) mg/dL Random Glucose (60-115) mg/dL Lactic Acid (0.5-2.0) mmol/L Calcium (8.4-10.2) mg/dL Magnesium (1.6-2.6) mg/dL Total Bilirubin (0.0-1.0) mg/dL Direct Bilirubin (0.0-0.5) mg/dL AST (5-31) U/L ALT (0-31) U/L Alkaline Phosphatase (39-117) U/L Total Creatine Kinase (26-140) U/L Total Protein (6.5-8.0) g/dL Albumin (3.5-5.0) g/dL Urine Color Yellow Urine Appearance Clear Urine pH 7.0 (5.0-9.0) Ur Specific [place] 1.010 (1.005-1.025) Urine Protein Negative (Neg-Trace) mg/dL Urine Glucose (UA) Negative (Negative) mg/dL Urine Ketones Negative (Negative) mg/dL Urine Blood Negative (Negative) Urine Nitrite Negative (Negative) Ur Leukocyte Esterase Negative (Negative) Urine Test NEGATIVE (NEGATIVE) 07/28/22 07/28/22 07/28/22 Range/Units 13:12 13:12 13:54 WBC (4.8-10.8) X10*3/uL RBC (4.20-5.50) X10*6/uL Hgb (12.0-16.0) g/dl Hct (37.0-47.0) % MCV (80.0-98.0) fL MCH (27.0-33.0) pg MCHC (31.0-35.0) g/dl RDW (11.0-16.0) % Plt Count (160-400) X10*3/uL MPV (9.4-12.3) fL Immature Gran % (Auto) (0.0-0.4) % Neut % (Auto) (45-73) % Lymph % (Auto) (20-40) % [place] % (Auto) (2-11) % Eos % (Auto) (0-4) % Baso % (Auto) (0-2) % Lymph # (Auto) (1.2-4.9) X10*3/uL [place] # (Auto) (0.1-1.2) X10*3/uL Eos # (Auto) (0.0-0.4) X10*3/uL Baso # (Auto) (0.0-0.2) X10*3/uL Abs Immat Gran (auto) (0.00-0.03) X10*3/uL Absolute Neuts (auto) (2.0-8.3) x10*3/uL Absolute Nucleated RBC (0.0-0.012) X10*3/uL Nucleated RBC % (auto) (0.0-0.2) /100WBC Sodium 142 (135-145) mmol/L Potassium 4.1 (3.3-5.1) mmol/L Chloride 108 (96-108) mmol/L Carbon Dioxide 22 (22-29) mmol/L Anion Gap 16 (12-20) BUN 10 (9-16) mg/dL Creatinine 0.72 (0.5-1.4) mg/dL Estim Creat Clear Calc 102.3 Estimated GFR > 60 POC Glucose 93 (60-115) mg/dL Random Glucose 93 (60-115) mg/dL Lactic Acid 0.8 (0.5-2.0) mmol/L Calcium 9.1 (8.4-10.2) mg/dL Magnesium 1.8 (1.6-2.6) mg/dL Total Bilirubin 0.5 (0.0-1.0) mg/dL Direct Bilirubin < 0.2 (0.0-0.5) mg/dL AST 25 (5-31) U/L ALT 20 (0-31) U/L Alkaline Phosphatase 150 H (39-117) U/L Total Creatine Kinase 99 (26-140) U/L Total Protein 6.5 (6.5-8.0) g/dL Albumin 4.1 (3.5-5.0) g/dL Urine Color Urine Appearance Urine pH (5.0-9.0) Ur Specific [place] (1.005-1.025) Urine Protein (Neg-Trace) mg/dL Urine Glucose (UA) (Negative) mg/dL Urine Ketones (Negative) mg/dL Urine Blood (Negative) Urine Nitrite (Negative) Ur Leukocyte Esterase (Negative) Urine Test (NEGATIVE) Independent Historian Clinical information obtained from an independent historian. History obtained from or confirmed by: EMS External Record Review External record reviewed: Outpatient record, Prior outpatient labs and Prior outpatient radiology Tests considered The following testing was considered but not selected: CT head considered but not indicated today, no trauma, not a new diagnosis Chronic Conditions Patient?s care impacted by: Other (seizure d/o, anxiety) Critical Care Time Critical Care Time Critical Care Time: No Discharge Plan Discharge Clinical Impression: Seizure disorder, Anxiety Patient Disposition: Home, Self-Care Instructions: Recurrent Seizures in Adults (ED), Anxiety (ED) Additional Instructions: Your lab workup and urine test today were unremarkable. Continue to take your seizure medications as directed. Follow-up with your neurologist as soon as possible. It is important to try to get 6-8 hours of restful sleep per night. If you develop new or worsening symptoms call 911 or come back to the ER for further evaluation. Prescriptions: No Action lacosamide [Vimpat] 10 mg/mL solution 350 mg PO BID Qty: 2100 0RF
[2022-07-28 12:59] LABS: Appearance Urine Clear; Color Urine Yellow; Glucose Urine UA Negative (Negative); Leukocyte Esterase Urine Negative (Negative); Nitrite Urine Negative (Negative); Urine Blood Negative (Negative); Urine Ketones Negative (Negative); Urine Protein Negative (Neg-Trace)
[2022-07-28 13:04] LABS: UPreg QC Valid YES; Urine Pregnancy NEGATIVE (NEGATIVE)
[2022-07-28 13:17] LABS: MANUAL DIFF FLAG NO
[2022-07-28 13:18] LABS: Basophils Percent Auto 0.4 % (0-2); Eosinophils Absolute Auto 0.2 X10*3/uL (0.0-0.4); Eosinophils Percent Auto 2.6 % (0-4); Hematocrit 37.1 % (37.0-47.0); Hemoglobin 13.1 g/dl (12.0-16.0); Imm Gran Abs Auto 0.02 X10*3/uL (0.00-0.03); Imm Gran Pct Auto 0.2 % (0.0-0.4); Lymphocytes Absolute Auto 2.5 X10*3/uL (1.2-4.9); Lymphocytes Percent Auto 28.6 % (20-40); Mean Corpuscular HGB Conc 35.3 g/dl (31.0-35.0); Mean Corpuscular Hemoglobin 29.4 pg (27.0-33.0); Mean Corpuscular Volume 83.2 fL (80.0-98.0); Mean Platelet Volume 9.6 fL (9.4-12.3); Monocytes Absolute Auto 0.6 X10*3/uL (0.1-1.2); Monocytes Percent Auto 6.5 % (2-11); Neutrophils Absolute Auto 5.3 x10*3/uL (2.0-8.3); Neutrophils Percent Auto 61.7 % (45-73); Platelet Count 231 X10*3/uL (160-400); Red Blood Count 4.46 X10*6/uL (4.20-5.50); White Blood Count 8.6 X10*3/uL (4.8-10.8)
[2022-07-28 13:29] LABS: Lactic Acid 0.8 mmol/L (0.5-2.0)
[2022-07-28 13:35] LABS: Alanine Aminotransferase 20 U/L (0-31); Albumin Level 4.1 g/dL (3.5-5.0); Alkaline Phosphatase 150 U/L (39-117); Anion Gap 16 (12-20); Aspartate Amino Transferase 25 U/L (5-31); Bilirubin Direct < 0.2 mg/dL (0.0-0.5); Bilirubin Total 0.5 mg/dL (0.0-1.0); Blood Urea Nitrogen 10 mg/dL (9-16); Calcium 9.1 mg/dL (8.4-10.2); Carbon Dioxide 22 mmol/L (22-29); Chloride 108 mmol/L (96-108); Creatinine Clr Calc Pharmacy 102.3; Estimated Glomerular Filt Rate > 60; Glucose Random 93 mg/dL (60-115); Magnesium 1.8 mg/dL (1.6-2.6); Potassium 4.1 mmol/L (3.3-5.1); Sodium 142 mmol/L (135-145); Total Protein 6.5 g/dL (6.5-8.0)
[2022-07-28 13:56] VITALS: BP 107/59; PULSE 77
[2022-07-28 13:58] VITALS: BP 112/68; PULSE 83
[2022-07-28 14:00] VITALS: BP 101/67; PULSE 96
[2022-07-28 14:08] LABS: Glucose, Whole Blood 93 mg/dL (60-115)
[2022-07-28 14:11] VITALS: BP 101/67; PULSE 83; RESP 16; O2SAT 97
== END 2022-07-28 16:00 | disposition home or self-care (01) ==
PROVIDERS: Physician Assistant; Emergency Provider Emergency Medicine
DX: R56.9 Unspecified convulsions (principal); F41.1 Generalized anxiety disorder; F43.0 Acute stress reaction; Z79.899 Other long term (current) drug therapy
CPT/HCPCS: 36415; 80048; 80076; 81003; 81025; 82550; 82947; 83605; 83735; 85025; 99283; 99284

== ENCOUNTER 2022-07-29 14:25 | Observation (INO) | payer BC, MEDICARE, SELFPAY ==
--- NOTE | ~2022-07-29 | MR_ITS ---
EXAMINATION: MR BRAIN WITHOUT CONTRAST CLINICAL INFORMATION: Breakthrough seizures with vertigo and diplopia. COMPARISON: Head CT from 06/30/2022. Brain MRI dated 02/13/2011. TECHNIQUE: Multiplanar, multisequence imaging of the brain was performed without contrast. FINDINGS: No diffusion abnormalities are identified to suggest an acute or subacute infarct. The ventricles are normal in size. No mass effect or midline shift is seen. Nonspecific mild scattered white matter signal changes have slightly progressed since the previous exam. No extra-axial fluid collections are seen. The brainstem and cerebellum are normal. The gradient refocused acquisition demonstrates no pathologic magnetic susceptibility artifact to indicate underlying acute or chronic blood products. There is [id number] volume loss in the right hippocampus along the mid and posterior portions without associated signal changes. The craniovertebral junction, marrow signal, and midline structures are normal. The major intracranial flow-voids at the level of the [place] of [place] are preserved. The dural venous sinus flow-voids are maintained. The mastoid air cells are well aerated. Severe left sphenoid sinus mucosal thickening with central inspissated secretions which are T1 hyperintense and T2 hypointense visible and new compared to prior imaging. There is additional mild mucosal thickening in the nondominant right sphenoid sinus. The remaining paranasal sinuses are fairly well aerated with a moderate leftward nasal septal deviation. MR/MR head/brain wo con IMPRESSION: No acute intracranial process. Progressed nonspecific mild white matter signal changes as compared to prior imaging. Moderate volume loss in the right hippocampus along the mid and posterior segments compared to the normal left side. No associated signal abnormality evident. Severe left sphenoid sinus mucosal disease with central inspissated secretions; correlate for any underlying acute symptomatology.
--- NOTE | ~2022-07-29 | CT_ITS ---
EXAMINATION: CT HEAD WITHOUT CONTRAST CLINICAL INFORMATION: Fall. Pain in back of head. COMPARISON: Recent brain MRI from 07/30/2022. TECHNIQUE: Contiguous axial imaging was performed from the skullbase to vertex without intravenous administration of contrast. This CT examination was performed using dose optimization techniques as appropriate, variously including the following: *Automated exposure control *Adjustment of mA and/or kV according to patient size (this includes techniques or standardized protocols for targeted exams where dose is matched to indication/reason for exam; i.e. extremities or head) *Use of iterative reconstruction technique DLP: 691 mGy-cm. FINDINGS: There is no evidence of acute intracranial hemorrhage or territorial infarction. No abnormal mass effect or midline shift is seen. No extra-axial fluid collections are identified. The ventricles are normal in size. There is no abnormal attenuation within the brain parenchyma. The osseous structures and soft tissues are normal. The mastoid air cells are well aerated. There is mucosal opacification of the right sphenoid sinus and a fluid level subtotally opacifying the left sphenoid sinus cavity. A 1.1 cm round high attenuation focus in the left sphenoid sinus is nonspecific and may reflect a proteinaceous retention cyst or possibly a mycetoma. CT/CT head/brain wo IV con IMPRESSION: No acute intracranial pathology.
[2022-07-29 14:36] VITALS: BP 152/86; BP 206/88; PULSE 103; PULSE 129; RESP 23; TEMP 36.7; O2SAT 96; O2SAT 97; BMI 37.0
--- NOTE | 2022-07-29 14:53 | ED.SEIZURE ---
HPI - Seizure General Chief Complaint: Seizure Stated Complaint: 3 witnessed seizures per EMS Time Seen by Provider: 07/29/22 14:52 Source: patient and EMS Mode of arrival: EMS Limitations: no limitations History of Present Illness HPI Narrative: 51 yo female with history of seizure disorder on Vimpat, anxiety on Klonopin who presents to the ER from home via EMS with 3 episodes of seizures today. Patient called 911 for 2 reported seizures this morning. When EMS arrived patient had a witnessed seizure lasting 2-3 minutes in duration. She was post-ictal after the event. No injury. She arrives to the ER still confused and post-ictal. She has been compliant with her Vimpat. Has not seen her new Neurologist at [facility]. Admits to lack of sleep. This is patient's 5th ER visit in 30 days for recurrent seizures. MD complaint: seizure Onset (ago): minute(s) Description of Episode: loss of consciousness, tonic-clonic movement and post-event confusion -: minutes(s) (2-3) Witnessed: Yes - by EMS Trauma: No Seizure History: Yes Place: Home Possible Precipitating Event: none Associated symptoms: confusion, weakness and other (headache) Related Data Home Medications Medication Instructions Recorded Confirmed clonazepam 0.5 mg disintegrating 1 tab PO BID 07/29/22 07/29/22 tablet diclofenac sodium 1 % topical gel 1 applic topical QID 07/29/22 07/29/22 granisetron 3.1 mg/24 hour weekly 1 patch topical QWEEK 07/29/22 07/29/22 transdermal patch (Sancuso) insulin degludec 200 unit/mL (3 80 unit subcut BEDTIME 07/29/22 07/29/22 mL) subcutaneous pen (Tresiba FlexTouch U-200 insulin) insulin lispro 200 unit/mL (3 mL) 60 unit subcut TID 07/29/22 07/29/22 subcutaneous pen (Humalog KwikPen U-200 Insulin) lidocaine 5 % topical patch 1 patch topical DAILY PRN Pain 07/29/22 07/29/22 Previous Rx's Medication Instructions Recorded lacosamide 10 mg/mL oral solution 350 mg (35 mL) PO BID #2,100 mL 07/01/22 (Vimpat) Allergies Allergy/AdvReac Type Severity Reaction Status Date / Time No Known Allergies Allergy Verified 07/02/22 20:58 Review of Systems Review of Systems: Yes all other systems are reviewed and are negative [facility] Past Medical History Medical History Anxiety disorder Epilepsy Social History Social History Alcohol intake: never Advance Directives: No Advance Directives Information Provided: Yes Physical Exam Vital Signs: Vital Signs: Last Vital Signs Temp 98.1 F 07/29/22 14:36 Pulse 103 H 07/29/22 14:36 Resp 23 H 07/29/22 14:36 BP 152/86 H 07/29/22 14:36 Pulse Ox 96 07/29/22 14:36 O2 Del Method 07/29/22 14:36 BMI result Body Mass Index 37.0 Appearance: Alert. Oriented X3. No acute distress. Eyes: Pupils equal, round and reactive to light. ENT: Pharynx normal. Neck: Normal inspection. Neck supple. CVS: Normal heart rate and rhythm. Pulses normal. Respiratory: No respiratory distress. Breath sounds normal. Abdomen: Soft and nontender. +BS x4 Skin: Skin warm and dry. Normal skin color. Normal skin turgor. No rashes. Extremities: No lower extremity edema. Neuro: Oriented X 3. Slow to respond, poor memory, remains confused. moves all extremities. nonfocal Medications Administered Discontinued Medications Generic Name Dose Route Start Last Admin Trade Name Freq PRN Reason Stop Dose Admin Levetiracetam 1,000 mg 07/29/22 15:51 07/29/22 16:29 Levetiracetam 500 Mg/5 Ml Vial IV 07/29/22 15:52 1,000 mg NOW STA Administration Medical Decision Making Medical Decision Making MDM Narrative: 51-year-old female with history of seizure disorder on Vimpat, anxiety who presents to the ER for evaluation of recurrent seizures. Patient had 3 seizure episodes today. She did regain consciousness between episodes. Clinical presentation is not consistent with status epilepticus. This is the patient's 5th visit to the emergency room in 1 month for recurrent seizures. She had witnessed seizure event today with tonic clonic activity by EMS along with postictal state. Her seizures are not well controlled. IV Keppra loaded. Will plan for admission for further evaluation. No obvious metabolic derangement seen on her repeat labs today. Differential Diagnosis Differential Diagnoses: The differential diagnosis associated with the presentation includes recurrent breakthrough seizures, status epilepticus, psychogenic nonepileptic seizures, hyponatremia, medication noncompliance Admission/Observation Consideration of admission/observation: Escalation of care including admission/observation considered Consult Healthcare Provider Management of the patient was discussed with: Hospitalist Lab Data MDM Lab Attestation statement: I reviewed the patient's lab results. No major metabolic derangement, hyperglycemia not associated with anion gap acidosis 07/29/22 15:44 07/29/22 15:44 Labs: Lab Results 07/29/22 07/29/22 07/29/22 Range/Units 15:40 15:44 15:44 WBC 5.9 (4.8-10.8) X10*3/uL RBC 4.61 (4.20-5.50) X10*6/uL Hgb 13.3 (12.0-16.0) g/dl Hct 39.1 (37.0-47.0) % MCV 84.8 (80.0-98.0) fL MCH 28.9 (27.0-33.0) pg MCHC 34.0 (31.0-35.0) g/dl RDW 12.9 (11.0-16.0) % Plt Count 229 (160-400) X10*3/uL MPV 9.6 (9.4-12.3) fL Immature Gran % (Auto) 0.3 (0.0-0.4) % Neut % (Auto) 59.8 (45-73) % Lymph % (Auto) 31.1 (20-40) % [place] % (Auto) 6.3 (2-11) % Eos % (Auto) 2.2 (0-4) % Baso % (Auto) 0.3 (0-2) % Lymph # (Auto) 1.8 (1.2-4.9) X10*3/uL [place] # (Auto) 0.4 (0.1-1.2) X10*3/uL Eos # (Auto) 0.1 (0.0-0.4) X10*3/uL Baso # (Auto) 0.0 (0.0-0.2) X10*3/uL Abs Immat Gran (auto) 0.02 (0.00-0.03) X10*3/uL Absolute Neuts (auto) 3.5 (2.0-8.3) x10*3/uL Absolute Nucleated RBC 0.000 (0.0-0.012) X10*3/uL Nucleated RBC % (auto) 0.0 (0.0-0.2) /100WBC Sodium 139 (135-145) mmol/L Potassium 4.5 (3.3-5.1) mmol/L Chloride 104 (96-108) mmol/L Carbon Dioxide 25 (22-29) mmol/L Anion Gap 15 (12-20) BUN 10 (9-16) mg/dL Creatinine 0.85 (0.5-1.4) mg/dL Estim Creat Clear Calc 88.0 Estimated GFR > 60 Random Glucose 337 H (60-115) mg/dL Lactic Acid (0.5-2.0) mmol/L Calcium 9.0 (8.4-10.2) mg/dL Magnesium 1.9 (1.6-2.6) mg/dL Total Bilirubin 0.4 (0.0-1.0) mg/dL Direct Bilirubin < 0.2 (0.0-0.5) mg/dL AST 19 (5-31) U/L ALT 19 (0-31) U/L Alkaline Phosphatase 199 H (39-117) U/L Total Creatine Kinase 87 (26-140) U/L Total Protein 6.7 (6.5-8.0) g/dL Albumin 4.1 (3.5-5.0) g/dL Urine Color Urine Appearance Urine pH (5.0-9.0) Ur Specific [place] (1.005-1.025) Urine Protein (Neg-Trace) mg/dL Urine Glucose (UA) (Negative) mg/dL Urine Ketones (Negative) mg/dL Urine Blood (Negative) Urine Nitrite (Negative) Ur Leukocyte Esterase (Negative) COVID-19 (PEDRO PABLO) Negative (Negative) COVID-19 Clin Com See Note 07/29/22 07/29/22 Range/Units 15:44 17:17 WBC (4.8-10.8) X10*3/uL RBC (4.20-5.50) X10*6/uL Hgb (12.0-16.0) g/dl Hct (37.0-47.0) % MCV (80.0-98.0) fL MCH (27.0-33.0) pg MCHC (31.0-35.0) g/dl RDW (11.0-16.0) % Plt Count (160-400) X10*3/uL MPV (9.4-12.3) fL Immature Gran % (Auto) (0.0-0.4) % Neut % (Auto) (45-73) % Lymph % (Auto) (20-40) % [place] % (Auto) (2-11) % Eos % (Auto) (0-4) % Baso % (Auto) (0-2) % Lymph # (Auto) (1.2-4.9) X10*3/uL [place] # (Auto) (0.1-1.2) X10*3/uL Eos # (Auto) (0.0-0.4) X10*3/uL Baso # (Auto) (0.0-0.2) X10*3/uL Abs Immat Gran (auto) (0.00-0.03) X10*3/uL Absolute Neuts (auto) (2.0-8.3) x10*3/uL Absolute Nucleated RBC (0.0-0.012) X10*3/uL Nucleated RBC % (auto) (0.0-0.2) /100WBC Sodium (135-145) mmol/L Potassium (3.3-5.1) mmol/L Chloride (96-108) mmol/L Carbon Dioxide (22-29) mmol/L Anion Gap (12-20) BUN (9-16) mg/dL Creatinine (0.5-1.4) mg/dL Estim Creat Clear Calc Estimated GFR Random Glucose (60-115) mg/dL Lactic Acid 1.8 (0.5-2.0) mmol/L Calcium (8.4-10.2) mg/dL Magnesium (1.6-2.6) mg/dL Total Bilirubin (0.0-1.0) mg/dL Direct Bilirubin (0.0-0.5) mg/dL AST (5-31) U/L ALT (0-31) U/L Alkaline Phosphatase (39-117) U/L Total Creatine Kinase (26-140) U/L Total Protein (6.5-8.0) g/dL Albumin (3.5-5.0) g/dL Urine Color Yellow Urine Appearance Clear Urine pH 6.5 (5.0-9.0) Ur Specific [place] 1.025 (1.005-1.025) Urine Protein 30 (1+) H (Neg-Trace) mg/dL Urine Glucose (UA) >=1000 H (Negative) mg/dL Urine Ketones Negative (Negative) mg/dL Urine Blood Negative (Negative) Urine Nitrite Negative (Negative) Ur Leukocyte Esterase Negative (Negative) COVID-19 (PEDRO PABLO) (Negative) COVID-19 Clin Com Radiology Impression Discussion of test interpretation with radiology: I have reviewed the radiologist's reading. Radiologist Impression: CT head from 06/30/2022 reviewed, impression is no acute intracranial pathology, sinus disease. Independent Historian Clinical information obtained from an independent historian. History obtained from or confirmed by: EMS External Record Review External record reviewed: Outpatient record and Prior outpatient labs Prescription Management I considered prescription management with: Other (Antiepileptic medication) Chronic Conditions Patient?s care impacted by: Other (Seizure disorder) Critical Care Time Critical Care Time Critical Care Time: No Discharge Plan Discharge Clinical Impression: Recurrent seizures Patient Disposition: Admitted As Inpatient
--- OUTSIDE RECORDS SUMMARY | 2022-07-29 15:47 | XMS_ITS ---
:1970 Author Care Team Providers Name Role Phone DR. WILLI OWUSU Referring Provider [phone] Allergies None recorded. Medications None recorded. Problems [...]
[2022-07-29 15:52] LABS: MANUAL DIFF FLAG NO
[2022-07-29 15:53] LABS: Basophils Percent Auto 0.3 % (0-2); Eosinophils Absolute Auto 0.1 X10*3/uL (0.0-0.4); Eosinophils Percent Auto 2.2 % (0-4); Hematocrit 39.1 % (37.0-47.0); Hemoglobin 13.3 g/dl (12.0-16.0); Imm Gran Abs Auto 0.02 X10*3/uL (0.00-0.03); Imm Gran Pct Auto 0.3 % (0.0-0.4); Lymphocytes Absolute Auto 1.8 X10*3/uL (1.2-4.9); Lymphocytes Percent Auto 31.1 % (20-40); Mean Corpuscular Hemoglobin 28.9 pg (27.0-33.0); Mean Corpuscular Volume 84.8 fL (80.0-98.0); Mean Platelet Volume 9.6 fL (9.4-12.3); Monocytes Absolute Auto 0.4 X10*3/uL (0.1-1.2); Monocytes Percent Auto 6.3 % (2-11); Neutrophils Absolute Auto 3.5 x10*3/uL (2.0-8.3); Neutrophils Percent Auto 59.8 % (45-73); Platelet Count 229 X10*3/uL (160-400); Red Blood Count 4.61 X10*6/uL (4.20-5.50); Red Cell Distribution Width 12.9 % (11.0-16.0); White Blood Count 5.9 X10*3/uL (4.8-10.8)
[2022-07-29 16:05] LABS: Lactic Acid 1.8 mmol/L (0.5-2.0)
[2022-07-29 16:06] LABS: COVID-19 Test Negative (Negative); IDNOW Serial# 6674DD1D
[2022-07-29 16:09] LABS: Alanine Aminotransferase 19 U/L (0-31); Albumin Level 4.1 g/dL (3.5-5.0); Alkaline Phosphatase 199 U/L (39-117); Anion Gap 15 (12-20); Aspartate Amino Transferase 19 U/L (5-31); Bilirubin Direct < 0.2 mg/dL (0.0-0.5); Bilirubin Total 0.4 mg/dL (0.0-1.0); Blood Urea Nitrogen 10 mg/dL (9-16); Carbon Dioxide 25 mmol/L (22-29); Chloride 104 mmol/L (96-108); Estimated Glomerular Filt Rate > 60; Glucose Random 337 mg/dL (60-115); Magnesium 1.9 mg/dL (1.6-2.6); Potassium 4.5 mmol/L (3.3-5.1); Sodium 139 mmol/L (135-145); Total Protein 6.7 g/dL (6.5-8.0)
[2022-07-29] MEDS: levETIRAcetam 500 MG/5 ML VIAL 1000 MG IV (16:29)
[2022-07-29 17:29] LABS: Appearance Urine Clear; Color Urine Yellow; Glucose Urine UA >=1000 mg/dL (Negative); Leukocyte Esterase Urine Negative (Negative); Nitrite Urine Negative (Negative); PH 6.5 (5.0-9.0); Specific Gravity - Urine 1.025 (1.005-1.025); UMIC TRIGGER UACC YES; Urine Blood Negative (Negative); Urine Ketones Negative (Negative); Urine Protein 30 (1+) mg/dL (Neg-Trace)
--- NOTE | 2022-07-29 17:29 | PHA.MEDREC ---
Pharmacy Consult ? Medication Reconciliation Pharmacy has completed the medication reconciliation.
[2022-07-29 17:34] LABS: Bacteria Urine None Seen (None Seen); Hyaline Casts Urine 0-2 /LPF (0-2); RBC Urine 0-2 /HPF (0-2); WBC Urine 0-5 /HPF (0-5)
--- NOTE | 2022-07-29 19:31 | P.HPHOSP_ITS ---
History of Present Illness Date of Service: 07/29/22 Attending physician on admission: Malik Lux Chief Complaint: seizure 51-year-old female with history of insulin-dependent type 2 diabetes, anxiety, dysphagia, vertigo, and temporal lobe epilepsy presents to the ED for evaluation of breakthrough seizures. The patient follows with Neurology at [facility] and has been taking Vimpat which had previously been controlling her seizures well. However she states she is going through a divorce from her with increased stress and poor sleep and for the last 2 months has been experiencing increase in seizure activity. She states she gets both absence and tonic clonic seizures. She does not drive. She states she has she has also been having an increase in vertigo episodes associated with diplopia that occur randomly rather than with head movements or position changes. She denies any gait instability. On arrival, vital signs stable. Hematology studies unremarkable. Renal f unction and electrolyte levels normal. Glucose 337. Lactic acid 1.8. Urinalysis with significant glucose and 1+ protein, otherwise unremarkable. In the ED, patient loaded with Keppra. To be observed overnight for breakthrough seizures. Review of Systems Review of Systems: Yes all other systems are reviewed and are negative [facility] Medical History (Updated 07/29/22 @ 19:41 by MOUNA Bradshaw) Anxiety disorder Insulin dependent type 2 diabetes mellitus Temporal lobe epilepsy Vertigo Social History Alcohol intake: never Advance Directives: No Advance Directives Information Provided: Yes Meds Allergies Allergy/AdvReac Type Severity Reaction Status Date / Time No Known Allergies Allergy Verified 07/02/22 20:58 Active Medications: Current Medications Acetaminophen (Acetaminophen 325 Mg Tablet) 650 mg PO Q6H PRN PRN Reason: Pain, Mild (Pain Scale 1-3) Enoxaparin Sodium (Enoxaparin Sodium 40 Mg/0.4 Ml Syringe) 40 mg SUBCUT Q24H ISIDRA Glucose (Glucose Gel 15 Gm Gel..Gram.) 15 gm PO Q15M PRN; Protocol PRN Reason: per Hypoglycemia Standing Ord. Dextrose (D10) 250 mls @ 750 mls/hr IV Q15M PRN; Protocol PRN Reason: per Hypoglycemia Standing Ord. Insulin Human Lispro (Insulin Lispro 100 Unit/Ml 3 Ml Vial) 0 unit SUBCUT QIDACHS ISIDRA; Protocol Ondansetron HCl (Ondansetron Hcl 4 Mg/2 Ml Vial) 4 mg IVPUSH Q8H PRN PRN Reason: Nausea and Vomiting Pharmacy Consult (Consult Rx Perform Med Rec) 1 each MISCELLANE ONCE PRN PRN Reason: Consult order Senna (Sennosides 8.6 Mg Tablet) 17.2 mg PO BEDTIME PRN PRN Reason: Constipation Sodium Chloride (0.9 % Sodium Chloride Flush 3 Ml Syringe) 3 ml IVFLUSH [facility] Trazodone HCl (Trazodone Hcl 50 Mg Tablet) 50 mg PO BEDTIME PRN PRN Reason: Insomnia Home Medications Medication Instructions Recorded Confirmed Last Taken Type clonazepam 0.5 mg disintegrating 1 tab PO BID 07/29/22 07/29/22 Unknown History tablet diclofenac sodium 1 % topical gel 1 applic topical QID 07/29/22 07/29/22 Unknown History granisetron 3.1 mg/24 hour weekly 1 patch topical QWEEK 07/29/22 07/29/22 Unknown History transdermal patch (Sancuso) insulin degludec 200 unit/mL (3 80 unit subcut BEDTIME 07/29/22 07/29/22 Unknown History mL) subcutaneous pen (Tresiba FlexTouch U-200 insulin) insulin lispro 200 unit/mL (3 mL) 60 unit subcut TID 07/29/22 07/29/22 Unknown History subcutaneous pen (Humalog KwikPen U-200 Insulin) lidocaine 5 % topical patch 1 patch topical DAILY PRN Pain 07/29/22 07/29/22 Unknown History Physical Exam Vital Signs and Narrative: Vital Signs: Last Vital Signs Temp 98.1 F 07/29/22 14:36 Pulse 103 H 07/29/22 14:36 Resp 23 H 07/29/22 14:36 BP 152/86 H 07/29/22 14:36 Pulse Ox 96 07/29/22 14:36 O2 Del Method 07/29/22 14:36 BMI result Body Mass Index 37.0 Constitutional - Awake and Alert, No apparent distress Eyes - PERRLA, EOMI Cardiovascular - S1S2, RRR, No edema Respiratory - Normal lung expansion, Normal respiratory effort, No respiratory distress, CTA bilaterally Gastrointestinal - NT / ND; +BS; No rebound or guarding Extremities - no calf tenderness bilaterally, no swelling Skin - Warm/Dry Neurological - Alert & oriented x3, CN II-XII in tact, 5/5 strength BUE and BLE Psychological - Appropriate affect Results Labs 07/29/22 15:44 07/29/22 15:44 Labs: Laboratory Results - last 24 hr 07/29/22 07/29/22 07/29/22 15:40 15:44 15:44 MCV 84.8 MCH 28.9 MCHC 34.0 RDW 12.9 Plt Count 229 MPV 9.6 Immature Gran % (Auto) 0.3 Neut % (Auto) 59.8 Lymph % (Auto) 31.1 [place] % (Auto) 6.3 Eos % (Auto) 2.2 Baso % (Auto) 0.3 Lymph # (Auto) 1.8 [place] # (Auto) 0.4 Eos # (Auto) 0.1 Baso # (Auto) 0.0 Abs Immat Gran (auto) 0.02 Absolute Neuts (auto) 3.5 Absolute Nucleated RBC 0.000 Nucleated RBC % (auto) 0.0 Anion Gap 15 Estim Creat Clear Calc 88.0 Estimated GFR > 60 Random Glucose 337 H Lactic Acid Calcium 9.0 Magnesium 1.9 Total Bilirubin 0.4 Direct Bilirubin < 0.2 AST 19 ALT 19 Alkaline Phosphatase 199 H Total Creatine Kinase 87 Total Protein 6.7 Albumin 4.1 Urine Color Urine Appearance Urine pH Ur Specific [place] Urine Protein Urine Glucose (UA) Urine Ketones Urine Blood Urine Nitrite Ur Leukocyte Esterase Urine RBC Urine WBC Ur Squamous Epith Cells Urine Bacteria Hyaline Casts COVID-19 (PEDRO PABLO) Negative COVID-19 Clin Com See Note 07/29/22 07/29/22 15:44 17:17 MCV MCH MCHC RDW Plt Count MPV Immature Gran % (Auto) Neut % (Auto) Lymph % (Auto) [place] % (Auto) Eos % (Auto) Baso % (Auto) Lymph # (Auto) [place] # (Auto) Eos # (Auto) Baso # (Auto) Abs Immat Gran (auto) Absolute Neuts (auto) Absolute Nucleated RBC Nucleated RBC % (auto) Anion Gap Estim Creat Clear Calc Estimated GFR Random Glucose Lactic Acid 1.8 Calcium Magnesium Total Bilirubin Direct Bilirubin AST ALT Alkaline Phosphatase Total Creatine Kinase Total Protein Albumin Urine Color Yellow Urine Appearance Clear Urine pH 6.5 Ur Specific [place] 1.025 Urine Protein 30 (1+) H Urine Glucose (UA) >=1000 H Urine Ketones Negative Urine Blood Negative Urine Nitrite Negative Ur Leukocyte Esterase Negative Urine RBC 0-2 Urine WBC 0-5 Ur Squamous Epith Cells 3-5 Urine Bacteria None Seen Hyaline Casts 0-2 COVID-19 (PEDRO PABLO) COVID-19 Clin Com Assessment and Plan (1) Recurrent seizures: Status: Acute Plan 51-year-old female with history of insulin-dependent type 2 diabetes, anxiety, dysphagia, vertigo, and temporal lobe epilepsy to be observed for breakthrough seizure activity # temporal lobe epilepsy -had been well managed on Vimpat, but increased stress and poorly sleep over last 2 months has resulted in increased seizure activity-both tonic-clonic and absence -loaded with Keppra. Continue Keppra 500 mg b.i.d. -continue Vimpat -seizure precautions -appreciate neurology input- will need outpt follow up as has no transportation to [facility] where previous neurologist office was located # vertigo with diplopia -not consistent with BPPV -given increased seizure activity, will also check MRI brain -appreciate Neuro input -meclizine p.r.n. # uncontrolled insulin-dependent type 2 diabetes with hyperglycemia -reports last hemoglobin A1c was around 10.0 -dose adjusted basal insulin -Humalog on sliding scale -POC glucose -diabetic diet # dysphagia- chronic -pills in applesauce/putting -ground/mechanical diet # severe obesity -weight loss efforts encouraged DVT prophylaxis-Lovenox Full code Time Spent With Patient Time: Total time managing care of this patient today ____ minutes. Quality Stroke Does the patient have a stroke diagnosis?: No VTE Prior VTE?: No VTE Risk Level:: Medical - moderate - high VTE Device Contraindication: Treatment Not Indicated VTE Drug Contraindication: N/A - Med Ordered
[2022-07-29 19:41] VITALS: BP 124/66; PULSE 84; RESP 16; TEMP 36.7; O2SAT 96
[2022-07-29] MEDS: Acetaminophen 325 MG TABLET 650 MG PO (19:49)
[2022-07-29] MEDS: Enoxaparin Sodium 40 MG/0.4 ML SYRINGE SUBCUT (19:50)
--- NOTE | 2022-07-29 19:54 | HE.PHANOTE ---
Patient on Vimpat 350 mg oral solution BID at home. Spoke with MOUNA Cornejo as vimpat oral solution is not on formulary. Patient is willing to try tablets however the only formulary dose is Vimpat 100 mg. Per MOUNA Cornejo will increase dose to Vimpat 400 mg tablets BID
[2022-07-29] MEDS: ondansetron HCL 4 MG/2 ML VIAL IVPUSH (19:55)
--- NOTE | 2022-07-29 19:57 | PC.NURSE ---
Assumed care of pt. Pt aox3 resting at the bedside in no apparent distress. Breaths are even, regular, and unlabored, with equal chest rises. NSR on monitor with HR 84. Reports headache and abd discomfort, 9/10. PO meds crushed and given with chocolate ice cream as pt reports difficulty swallowing pills. Medicated as ordered. Pt tolerated well. Seizure pads in place. Pending bed assignment. Pt aware of plan of care. Will continue to monitor.
--- NOTE | 2022-07-29 20:18 | PC.NURSE ---
RN to RN report given to SAVANNAH Boston. Pt being transferred to room 359 and aware of plan.
[2022-07-29 20:38] VITALS: BP 142/67; PULSE 83; RESP 18; TEMP 36.8; O2SAT 98
[2022-07-29 20:57] LABS: Glucose, Whole Blood 269 mg/dL (60-115)
[2022-07-29] MEDS: clonazePAM 0.5 MG TABLET PO (22:28)
[2022-07-29] MEDS: Insulin Lispro 100 UNIT/ML 3 ML VIAL SUBCUT (22:28)
[2022-07-29] MEDS: Lacosamide 100 MG TABLET 400 MG PO (22:28)
[2022-07-29] MEDS: Insulin Glargine,Hum.rec.anlog 100 UNIT/ML 10 ML VIAL 46 UNIT SUBCUT (22:30)
[2022-07-29] MEDS: 0.9 % Sodium Chloride Flush 3 ML SYRINGE IVFLUSH (22:43)
[2022-07-29 23:45] VITALS: BP 121/67; PULSE 82; RESP 17; TEMP 36.2; O2SAT 96
[2022-07-29 23:46] VITALS: BMI 37.0
[2022-07-30 03:03] VITALS: BP 116/61; PULSE 73; RESP 18; TEMP 36; O2SAT 94
[2022-07-30] MEDS: levETIRAcetam in NaCl (iso-os) 500 MG/100 ML PIGGYBACK 400 MG IV ×2 (04:56→16:54)
[2022-07-30 06:29] LABS: MANUAL DIFF FLAG NO
[2022-07-30 06:39] LABS: Basophils Percent Auto 0.5 % (0-2); Eosinophils Absolute Auto 0.2 X10*3/uL (0.0-0.4); Eosinophils Percent Auto 2.7 % (0-4); Hematocrit 37.6 % (37.0-47.0); Hemoglobin 12.5 g/dl (12.0-16.0); Imm Gran Abs Auto 0.02 X10*3/uL (0.00-0.03); Imm Gran Pct Auto 0.3 % (0.0-0.4); Lymphocytes Absolute Auto 3.1 X10*3/uL (1.2-4.9); Mean Corpuscular HGB Conc 33.2 g/dl (31.0-35.0); Mean Corpuscular Hemoglobin 29.2 pg (27.0-33.0); Mean Corpuscular Volume 87.9 fL (80.0-98.0); Mean Platelet Volume 10.4 fL (9.4-12.3); Monocytes Absolute Auto 0.5 X10*3/uL (0.1-1.2); Monocytes Percent Auto 7.8 % (2-11); Neutrophils Absolute Auto 2.8 x10*3/uL (2.0-8.3); Neutrophils Percent Auto 42.7 % (45-73); Platelet Count 208 X10*3/uL (160-400); Red Blood Count 4.28 X10*6/uL (4.20-5.50); White Blood Count 6.6 X10*3/uL (4.8-10.8)
[2022-07-30 07:12] LABS: Anion Gap 15 (12-20); Blood Urea Nitrogen 12 mg/dL (9-16); Calcium 8.8 mg/dL (8.4-10.2); Carbon Dioxide 22 mmol/L (22-29); Chloride 107 mmol/L (96-108); Creatinine Clr Calc Pharmacy 102.4; Estimated Glomerular Filt Rate > 60; Glucose Random 240 mg/dL (60-115); Potassium 4.2 mmol/L (3.3-5.1); Sodium 140 mmol/L (135-145)
--- NOTE | 2022-07-30 07:33 | P.PNIM_ITS ---
Subjective Subjective Date of Service: 07/30/22 Interval History: f/u on recurrent seizures interval history: no seizure this morning or overnight Physical Exam Vital Signs: Vital Signs: Last Vital Signs Temp 96.8 F 07/30/22 03:03 Pulse 73 07/30/22 03:03 Resp 18 07/30/22 03:03 BP 116/61 07/30/22 03:03 Pulse Ox 94 07/30/22 03:03 O2 Del Method 07/30/22 03:03 BMI result Body Mass Index 37.0 Const: Other: Constitutional - Awake and Alert, No apparent distress Eyes - PERRLA, EOMI Cardiovascular - S1S2, RRR, No edema Respiratory - Normal lung expansion, Normal respiratory effort, No respiratory distress, CTA bilaterally Gastrointestinal - NT / ND; +BS; No rebound or guarding Extremities - no calf tenderness bilaterally, no swelling Skin - Warm/Dry Neurological - Alert & oriented x3, CN II-XII in tact, 5/5 strength BUE and BLE Psychological - Appropriate affect Objective Data Active Medications Acetaminophen (Acetaminophen 325 Mg Tablet) 650 mg PO Q6H PRN PRN Reason: Pain, Mild (Pain Scale 1-3) Last Admin: 07/29/22 19:49 Dose: 650 mg Documented By: STAR Clonazepam (Clonazepam 0.5 Mg Tablet) 0.5 mg PO BID [facility] Last Admin: 07/29/22 22:28 Dose: 0.5 mg Documented By: JUSTIN Enoxaparin Sodium (Enoxaparin Sodium 40 Mg/0.4 Ml Syringe) 40 mg SUBCUT Q24H [facility] Last Admin: 07/29/22 19:50 Dose: 40 mg Documented By: STAR Glucose (Glucose Gel 15 Gm Gel..Gram.) 15 gm PO Q15M PRN; Protocol PRN Reason: per Hypoglycemia Standing Ord. Dextrose (D10) 250 mls @ 750 mls/hr IV Q15M PRN; Protocol PRN Reason: per Hypoglycemia Standing Ord. Levetiracetam (Keppra) 500 mg in 100 mls @ 400 mls/hr IV Q12H [facility] Last Infusion: 07/30/22 05:15 Dose: 0 mls/hr Documented By: JUSTIN Insulin Glargine (Insulin Glargine,Hum.Rec.Anlog 100 Unit/Ml 10 Ml Vial) 46 unit SUBCUT BEDTIME [facility] Last Admin: 07/29/22 22:30 Dose: 46 unit Documented By: JUSTIN Insulin Human Lispro (Insulin Lispro 100 Unit/Ml 3 Ml Vial) 0 unit SUBCUT QIDACHS [facility]; Protocol Last Admin: 07/29/22 22:28 Dose: 6 unit Documented By: JUSTIN Lacosamide (Lacosamide 100 Mg Tablet) 400 mg PO BID [facility] Last Admin: 07/29/22 22:28 Dose: 400 mg Documented By: JUSTIN Comments: new admit Lidocaine (Lidocaine 4 % Patch Adh..Patch) 1 patch TRANSDERMA DAILY PRN PRN Reason: back pain Meclizine HCl (Meclizine Hcl 25 Mg Tablet) 25 mg PO Q8H PRN PRN Reason: Vertigo Ondansetron HCl (Ondansetron Hcl 4 Mg/2 Ml Vial) 4 mg IVPUSH Q8H PRN PRN Reason: Nausea and Vomiting Last Admin: 07/29/22 19:55 Dose: 4 mg Documented By: STAR Pharmacy Consult (Consult Rx Perform Med Rec) 1 each MISCELLANE ONCE PRN PRN Reason: Consult order Senna (Sennosides 8.6 Mg Tablet) 17.2 mg PO BEDTIME PRN PRN Reason: Constipation Sodium Chloride (0.9 % Sodium Chloride Flush 3 Ml Syringe) [facility] Last Admin: 07/29/22 22:43 Dose: 3 ml Documented By: JUSTIN Trazodone HCl (Trazodone Hcl 50 Mg Tablet) 50 mg PO BEDTIME PRN PRN Reason: Insomnia Labs 07/30/22 05:45 07/30/22 05:45 Labs: Laboratory Results - last 24 hr 07/29/22 07/29/22 07/29/22 15:40 15:44 15:44 MCV 84.8 MCH 28.9 MCHC 34.0 RDW 12.9 Plt Count 229 MPV 9.6 Immature Gran % (Auto) 0.3 Neut % (Auto) 59.8 Lymph % (Auto) 31.1 Cottle % (Auto) 6.3 Eos % (Auto) 2.2 Baso % (Auto) 0.3 Lymph # (Auto) 1.8 Cottle # (Auto) 0.4 Eos # (Auto) 0.1 Baso # (Auto) 0.0 Abs Immat Gran (auto) 0.02 Absolute Neuts (auto) 3.5 Absolute Nucleated RBC 0.000 Nucleated RBC % (auto) 0.0 Anion Gap 15 Estim Creat Clear Calc 88.0 Estimated GFR > 60 POC Glucose Random Glucose 337 H Lactic Acid Calcium 9.0 Magnesium 1.9 Total Bilirubin 0.4 Direct Bilirubin < 0.2 AST 19 ALT 19 Alkaline Phosphatase 199 H Total Creatine Kinase 87 Total Protein 6.7 Albumin 4.1 Urine Color Urine Appearance Urine pH Ur Specific [place] Urine Protein Urine Glucose (UA) Urine Ketones Urine Blood Urine Nitrite Ur Leukocyte Esterase Urine RBC Urine WBC Ur Squamous Epith Cells Urine Bacteria Hyaline Casts COVID-19 ([facility]) Negative COVID-19 Clin Com See Note 07/29/22 07/29/22 07/29/22 15:44 17:17 20:37 MCV MCH MCHC RDW Plt Count MPV Immature Gran % (Auto) Neut % (Auto) Lymph % (Auto) Cottle % (Auto) Eos % (Auto) Baso % (Auto) Lymph # (Auto) Cottle # (Auto) Eos # (Auto) Baso # (Auto) Abs Immat Gran (auto) Absolute Neuts (auto) Absolute Nucleated RBC Nucleated RBC % (auto) Anion Gap Estim Creat Clear Calc Estimated GFR POC Glucose 269 H Random Glucose Lactic Acid 1.8 Calcium Magnesium Total Bilirubin Direct Bilirubin AST ALT Alkaline Phosphatase Total Creatine Kinase Total Protein Albumin Urine Color Yellow Urine Appearance Clear Urine pH 6.5 Ur Specific [place] 1.025 Urine Protein 30 (1+) H Urine Glucose (UA) >=1000 H Urine Ketones Negative Urine Blood Negative Urine Nitrite Negative Ur Leukocyte Esterase Negative Urine RBC 0-2 Urine WBC 0-5 Ur Squamous Epith Cells 3-5 Urine Bacteria None Seen Hyaline Casts 0-2 COVID-19 ([facility]) COVID-19 Clin Com 07/30/22 07/30/22 05:45 05:45 MCV 87.9 MCH 29.2 MCHC 33.2 RDW 13.0 Plt Count 208 MPV 10.4 Immature Gran % (Auto) 0.3 Neut % (Auto) 42.7 L Lymph % (Auto) 46.0 H Cottle % (Auto) 7.8 Eos % (Auto) 2.7 Baso % (Auto) 0.5 Lymph # (Auto) 3.1 Cottle # (Auto) 0.5 Eos # (Auto) 0.2 Baso # (Auto) 0.0 Abs Immat Gran (auto) 0.02 Absolute Neuts (auto) 2.8 Absolute Nucleated RBC 0.000 Nucleated RBC % (auto) 0.0 Anion Gap 15 Estim Creat Clear Calc 102.4 Estimated GFR > 60 POC Glucose Random Glucose 240 H Lactic Acid Calcium 8.8 Magnesium Total Bilirubin Direct Bilirubin AST ALT Alkaline Phosphatase Total Creatine Kinase Total Protein Albumin Urine Color Urine Appearance Urine pH Ur Specific [place] Urine Protein Urine Glucose (UA) Urine Ketones Urine Blood Urine Nitrite Ur Leukocyte Esterase Urine RBC Urine WBC Ur Squamous Epith Cells Urine Bacteria Hyaline Casts COVID-19 ([facility]) COVID-19 Clin Com Assessment and Plan (1) Recurrent seizures: Status: Acute Plan 51-year-old female with history of insulin-dependent type 2 diabetes, anxiety, dysphagia, vertigo, and temporal lobe epilepsy to be observed for breakthrough seizure activity # temporal lobe epilepsy -had been well managed on Vimpat, but increased stress and poor sleep over last 2 months has resulted in increased seizure activity-both tonic-clonic and absence -loaded with Keppra.? Continue Keppra 500 mg b.i.d. -continue Vimpat (can only take liquid or iv) -seizure precautions -Neuro consult pending- will need outpt follow up as has no transportation to [facility] where previous neurologist office was located # vertigo with diplopia -not consistent with BPPV -given increased seizure activity, will also check MRI brain -appreciate Neuro input -meclizine p.r.n. # uncontrolled insulin-dependent type 2 diabetes with hyperglycemia -reports last hemoglobin A1c was around 10.0 -dose adjusted basal insulin -Humalog on sliding scale -POC glucose -diabetic diet # dysphagia- chronic -pills in applesauce/putting -ground/mechanical diet # severe obesity -weight loss efforts encouraged DVT prophylaxis-Lovenox Full code need fof inpatient: recurrent seizures that may need med adjustment Time Spent With Patient Time: Total time managing care of this patient today ____ minutes. Time Spent With Patient Time: Total time managing care of this patient today ____ minutes. Quality Stroke Does the patient have a stroke diagnosis?: No VTE Prior VTE?: No VTE Risk Level:: Medical - moderate - high VTE Device Contraindication: Treatment Not Indicated VTE Drug Contraindication: N/A - Med Ordered
[2022-07-30 07:35] VITALS: BP 111/56; PULSE 70; RESP 18; TEMP 36.2; O2SAT 94
[2022-07-30 07:51] LABS: Glucose, Whole Blood 170 mg/dL (60-115)
[2022-07-30] MEDS: Insulin Lispro 100 UNIT/ML 3 ML VIAL SUBCUT ×4 (08:04→23:04)
[2022-07-30] MEDS: 0.9 % Sodium Chloride Flush 3 ML SYRINGE IVFLUSH ×3 (08:08→23:01)
[2022-07-30] MEDS: clonazePAM 0.5 MG TABLET PO ×2 (10:22→23:07)
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
--- NOTE | 2022-07-30 10:51 | MHC.CM.PN ---
PT REPORTS SHE IS LIVING IN A HOTEL ON [address] PAID FOR BY [employer] SHE REPORTS SHE HAS NO SERVICES AND USES A ROLLING WALKER SHE REPORTS SHE IS FROM [place] BUT HERE DUE TO GOING THROUGH A BAD DIVORCE SHE REPORTS SHE DOES NOT HAVE A PCP AT THIS TIME, THE LAST ONE SHE SAW WAS [facility] IN [place] SHE DECLINES TO COMPLETE A HCP TODAY STATING SHE WILL NEED TO CONSIDER WHO TO NAME DOCUMENT AND INFO PROVIDED OBSERVATION NOTICE DELIVERED DC PLAN IS RETURN TO [facility] PTS SISTER IS IN THE AREA TODAY BUT IF PT DISCHARGES LATER IN THE WEEK, SHE WILL NEED THE SHUTTLE PT ALSO REPORTS SHE FEELS SHE NEEDS ASSISTANCE IN THE COMMUNITY WITH THINGS LIKE GROCERY SHOPPING AND GOING TO THE PHARMACY SHE WOULD LIKE A AUDIT MANAGER A REFERRAL WAS SENT TO [facility] TO DETERMINE IF PT IS ELIGIBLE FOR MH A TASK WAS SENT TO [facility] TO ATTEMPT TO SECURE A PCP FOR PT
--- NOTE | 2022-07-30 11:02 | PC.NURSE ---
pt refusing to take PO pill medications, stating pt is unable to swallow due to dysphagia. Dr Doty made aware.
[2022-07-30 12:00] VITALS: BP 129/65; PULSE 81; RESP 18; TEMP 36.2; O2SAT 93
[2022-07-30 12:06] LABS: Glucose, Whole Blood 195 mg/dL (60-115)
[2022-07-30] MEDS: Acetaminophen 325 MG TABLET 650 MG PO ×2 (14:22→23:06)
[2022-07-30] MEDS: ondansetron HCL 4 MG/2 ML VIAL IVPUSH ×2 (14:23→23:01)
--- NOTE | 2022-07-30 15:01 | HE.PHANOTE ---
[facility] brought down two bottles of 200 ml Lacosamide oral solution 10mg/mL. These are patient own sent by the RN. Put 1 bottle in our safe with pharmacy department and 1 bottle was loaded to [employer]. Both bottles are brand new, not opened.
[2022-07-30 15:32] VITALS: BP 120/59; PULSE 78; RESP 18; TEMP 36.4; O2SAT 95
[2022-07-30 16:28] LABS: Glucose, Whole Blood 256 mg/dL (60-115)
[2022-07-30 19:39] VITALS: BP 136/63; RESP 16; TEMP 35.9; O2SAT 99
[2022-07-30 20:31] LABS: Glucose, Whole Blood 284 mg/dL (60-115)
[2022-07-30 22:44] VITALS: BP 123/62; PULSE 77; RESP 16; TEMP 36.1; O2SAT 96
[2022-07-30] MEDS: Enoxaparin Sodium 40 MG/0.4 ML SYRINGE SUBCUT (23:02)
[2022-07-30] MEDS: Insulin Glargine,Hum.rec.anlog 100 UNIT/ML 10 ML VIAL 46 UNIT SUBCUT (23:04)
[2022-07-31] VITALS (7 sets, daily range): BP systolic 107–168; BP diastolic 58–84; PULSE 60–96; RESP 15–18; TEMP 36.1–36.6; O2SAT 92–96
[2022-07-31] MEDS: levETIRAcetam in NaCl (iso-os) 500 MG/100 ML PIGGYBACK 400 MG IV ×2 (05:07→17:22)
[2022-07-31 07:11] LABS: Glucose, Whole Blood 108 mg/dL (60-115)
[2022-07-31] MEDS: clonazePAM 0.5 MG TABLET PO ×2 (08:27→21:21)
[2022-07-31] MEDS: 0.9 % Sodium Chloride Flush 3 ML SYRINGE IVFLUSH ×2 (08:30→17:26)
--- NOTE | 2022-07-31 08:56 | P.PNIM_ITS ---
Subjective Subjective Date of Service: 07/31/22 Interval History: f/u on seizures had witness seizure this morning and fell out of bed given IV ativan Physical Exam Vital Signs: Vital Signs: Last Vital Signs Temp 97 F 07/31/22 07:00 Pulse 60 07/31/22 07:00 Resp 16 07/31/22 07:00 BP 107/58 L 07/31/22 07:00 Pulse Ox 94 07/31/22 07:00 O2 Del Method 07/31/22 07:00 BMI result Body Mass Index 37.0 Const: Other: General: was confused following seizure, but before that was completly clear Resp: CTA bilateral CVS: S1,S2,RRR GI: +BS, NT, no distention Skin: No rash Neuro: motor grossly intact, no noted scalp injry or laceration Psych: appropriate affect Objective Data Active Medications Acetaminophen (Acetaminophen 325 Mg Tablet) 650 mg PO Q6H PRN PRN Reason: Pain, Mild (Pain Scale 1-3) Last Admin: 07/30/22 23:06 Dose: 650 mg Documented By: DILLON Clonazepam (Clonazepam 0.5 Mg Tablet) 0.5 mg PO BID [facility] Last Admin: 07/31/22 08:27 Dose: 0.5 mg Documented By: ANISHA Enoxaparin Sodium (Enoxaparin Sodium 40 Mg/0.4 Ml Syringe) 40 mg SUBCUT Q24H [facility] Last Admin: 07/30/22 23:02 Dose: 40 mg Documented By: DILLON Glucose (Glucose Gel 15 Gm Gel..Gram.) 15 gm PO Q15M PRN; Protocol PRN Reason: per Hypoglycemia Standing Ord. Dextrose (D10) 250 mls @ 750 mls/hr IV Q15M PRN; Protocol PRN Reason: per Hypoglycemia Standing Ord. Levetiracetam (Keppra) 500 mg in 100 mls @ 400 mls/hr IV Q12H [facility] Last Infusion: 07/31/22 05:36 Dose: 0 mls/hr Documented By: DILLON Insulin Glargine (Insulin Glargine,Hum.Rec.Anlog 100 Unit/Ml 10 Ml Vial) 46 unit SUBCUT BEDTIME [facility] Last Admin: 07/30/22 23:04 Dose: 46 unit Documented By: DILLON Insulin Human Lispro (Insulin Lispro 100 Unit/Ml 3 Ml Vial) 0 unit SUBCUT [facility]IDA [facility]; Protocol Last Admin: 07/31/22 07:15 Dose: Not Given Documented By: ANISHA Non-Admin Reason: No Insulin Coverage Lidocaine (Lidocaine 4 % Patch Adh..Patch) 1 patch TRANSDERMA DAILY PRN PRN Reason: back pain Meclizine HCl (Meclizine Hcl 25 Mg Tablet) 25 mg PO Q8H PRN PRN Reason: Vertigo Pt Own (Lacosamide ( (Vimpat) 10mg/Ml)) 35 ml PO BID [facility] Last Admin: 07/31/22 08:27 Dose: 35 ml Documented By: ANISHA Ondansetron HCl (Ondansetron Hcl 4 Mg/2 Ml Vial) 4 mg IVPUSH Q8H PRN PRN Reason: Nausea and Vomiting Last Admin: 07/30/22 23:01 Dose: 4 mg Documented By: DILLON Pharmacy Consult (Consult Rx Perform Med Rec) 1 each MISCELLANE ONCE PRN PRN Reason: Consult order Senna (Sennosides 8.6 Mg Tablet) 17.2 mg PO BEDTIME PRN PRN Reason: Constipation Sodium Chloride (0.9 % Sodium Chloride Flush 3 Ml Syringe) 3 ml IVFLUSH [facility] Last Admin: 07/31/22 08:30 Dose: 3 ml Documented By: ANISHA Trazodone HCl (Trazodone Hcl 50 Mg Tablet) 50 mg PO BEDTIME PRN PRN Reason: Insomnia Labs 07/30/22 05:45 07/30/22 05:45 Labs: Laboratory Results - last 24 hr 07/30/22 07/30/22 07/30/22 11:53 16:18 19:35 POC Glucose 195 H 256 H 284 H 07/31/22 06:59 POC Glucose 108 Assessment and Plan (1) Epilepsy: Status: Acute (2) Recurrent seizures: Status: Acute Plan 51-year-old female with history of insulin-dependent type 2 diabetes, anxiety, dysphagia, vertigo, and temporal lobe epilepsy to be observed for breakthrough seizure activity # temporal lobe epilepsy, another seizure this morning -had been well managed on Vimpat, but increased stress and poorly sleep over last 2 months has resulted in increased seizure activity-both tonic-clonic and absence -loaded with Keppra.? Continue Keppra 500 mg b.i.d. -continue Vimpat -seizure precautions -appreciate neurology input- recommends no change for now and to get record from Neurologist in [place] Ativan PRN for sizure in addition -CT head today since fell out of chair # vertigo with diplopia--resovved -not consistent with BPPV -given increased seizure activity, -MRI negaive, -appreciate Neuro input -meclizine p.r.n. # uncontrolled insulin-dependent type 2 diabetes with hyperglycemia -reports last hemoglobin A1c was around 10.0 -dose adjusted basal insulin -Humalog on sliding scale -POC glucose -diabetic diet # dysphagia- chronic -pills in applesauce/putting -ground/mechanical diet # severe obesity -weight loss efforts encouraged DVT prophylaxis-Lovenox Dr Maguire (neurologist in [place]) [phone] Time Spent With Patient Time: Total time managing care of this patient today ____ minutes. Quality Stroke Does the patient have a stroke diagnosis?: No VTE Prior VTE?: No VTE Risk Level:: Medical - moderate - high VTE Device Contraindication: Treatment Not Indicated VTE Drug Contraindication: N/A - Med Ordered
[2022-07-31 09:30] LABS: Glucose, Whole Blood 232 mg/dL (60-115)
[2022-07-31] MEDS: LORazepam 2 MG/ML VIAL 1 MG IVPUSH (09:36)
[2022-07-31 11:08] LABS: Glucose, Whole Blood 260 mg/dL (60-115)
[2022-07-31] MEDS: Insulin Lispro 100 UNIT/ML 3 ML VIAL SUBCUT ×3 (11:55→21:21)
--- NOTE | 2022-07-31 13:06 | MHC.CM.PN ---
DP return to [facility] paid by [employer]. She will transport via [facility]. Per MD rounds no dc today. [facility] rapid response was called this am. Patient has been sen by Neuro. Medication changes made. CM will follow for discharge.
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
[2022-07-31 16:38] LABS: Glucose, Whole Blood 213 mg/dL (60-115)
--- NOTE | 2022-07-31 18:36 | PC.NURSE ---
Pt experience 2 witness seizures @ aprox 9:24. Pt was found on the floor after her chair alarm was going off @ 9:20. Rapid was called. Pt stating need to get to bed. MD Alonzo and this nurse lifted this pt to bed.Pt began seizing. Able to [id number]% RA and 103 hr. @ 9.25 pt bs 232, 216/116. @ 926 pt began seizing again. 926 pt given 1mg ativan ivp. 930 VS 223/95 p108 98%2l. Post seizure pt was able to relax, began try cry. Perrla, responsive. full motion of extremities. 933 vitals 168/84, 100, 96%. Rapid concluded @ 943 w cameral placed in room.
[2022-07-31 20:31] LABS: Glucose, Whole Blood 242 mg/dL (60-115)
[2022-07-31] MEDS: Insulin Glargine,Hum.rec.anlog 100 UNIT/ML 10 ML VIAL 46 UNIT SUBCUT (21:21)
[2022-07-31] MEDS: Enoxaparin Sodium 40 MG/0.4 ML SYRINGE SUBCUT (21:34)
[2022-08-01 03:45] VITALS: BP 129/79; PULSE 85; RESP 17; TEMP 36.8; O2SAT 98
[2022-08-01] MEDS: levETIRAcetam in NaCl (iso-os) 500 MG/100 ML PIGGYBACK 400 MG IV (05:45)
[2022-08-01 07:49] LABS: Glucose, Whole Blood 158 mg/dL (60-115)
[2022-08-01] MEDS: clonazePAM 0.5 MG TABLET PO ×3 (07:57→22:21)
[2022-08-01] MEDS: Insulin Lispro 100 UNIT/ML 3 ML VIAL SUBCUT ×4 (07:58→22:21)
[2022-08-01] MEDS: 0.9 % Sodium Chloride Flush 3 ML SYRINGE IVFLUSH ×2 (07:58→12:16)
[2022-08-01 07:59] VITALS: BP 110/59; PULSE 84; RESP 20; TEMP 36.5; O2SAT 92
[2022-08-01] MEDS: Acetaminophen 325 MG TABLET 650 MG PO ×2 (08:11→14:32)
[2022-08-01 09:32] LABS: Glucose, Whole Blood 154 mg/dL (60-115)
--- NOTE | 2022-08-01 10:52 | HO.PM.IMPN ---
Subjective Subjective Date of Service: 08/01/22 Interval History: f/u on seizures No further seizure overnight Physical Exam Vital Signs: Vital Signs: Last Vital Signs Temp 97.7 F 08/01/22 07:59 Pulse 84 08/01/22 07:59 Resp 20 08/01/22 07:59 BP 110/59 L 08/01/22 07:59 Pulse Ox 92 08/01/22 07:59 O2 Del Method 08/01/22 07:59 BMI result Body Mass Index 37.0 Const: Other: General: was confused following seizure, but before that was completly clear Resp: CTA bilateral CVS: S1,S2,RRR GI: +BS, NT, no distention Skin: No rash Neuro: motor grossly intact, no noted scalp injry or laceration Psych: appropriate affect Objective Data Active Medications Acetaminophen (Acetaminophen 325 Mg Tablet) 650 mg PO Q6H PRN PRN Reason: Pain, Mild (Pain Scale 1-3) Last Admin: 08/01/22 08:11 Dose: 650 mg Documented By: ANALISA Clonazepam (Clonazepam 0.5 Mg Tablet) 0.5 mg PO BID [facility] Last Admin: 08/01/22 07:57 Dose: 0.5 mg Documented By: ANALISA Enoxaparin Sodium (Enoxaparin Sodium 40 Mg/0.4 Ml Syringe) 40 mg SUBCUT Q24H [facility] Last Admin: 07/31/22 21:34 Dose: 40 mg Documented By: JOYCE Glucose (Glucose Gel 15 Gm Gel..Gram.) 15 gm PO Q15M PRN; Protocol PRN Reason: per Hypoglycemia Standing Ord. Dextrose (D10) 250 mls @ 750 mls/hr IV Q15M PRN; Protocol PRN Reason: per Hypoglycemia Standing Ord. Levetiracetam (Keppra) 500 mg in 100 mls @ 400 mls/hr IV Q12H [facility] Last Infusion: 08/01/22 06:33 Dose: 0 mls/hr Documented By: JOYCE Insulin Glargine (Insulin Glargine,Hum.Rec.Anlog 100 Unit/Ml 10 Ml Vial) 46 unit SUBCUT BEDTIME [facility] Last Admin: 07/31/22 21:21 Dose: 46 unit Documented By: JOYCE Insulin Human Lispro (Insulin Lispro 100 Unit/Ml 3 Ml Vial) 0 unit SUBCUT QIDACHS [facility]; Protocol Last Admin: 08/01/22 07:58 Dose: 2 unit Documented By: ANALISA Lidocaine (Lidocaine 4 % Patch Adh..Patch) 1 patch TRANSDERMA DAILY PRN PRN Reason: back pain Lorazepam (Lorazepam 2 Mg/Ml Vial) 1 mg IVPUSH Q2H PRN PRN Reason: Sedation Meclizine HCl (Meclizine Hcl 25 Mg Tablet) 25 mg PO Q8H PRN PRN Reason: Vertigo Pt Own (Lacosamide ( (Vimpat) 10mg/Ml)) 35 ml PO BID [facility] Last Admin: 08/01/22 08:24 Dose: 35 ml Documented By: ANALISA Ondansetron HCl (Ondansetron Hcl 4 Mg/2 Ml Vial) 4 mg IVPUSH Q8H PRN PRN Reason: Nausea and Vomiting Last Admin: 07/30/22 23:01 Dose: 4 mg Documented By: DILLON Pharmacy Consult (Consult Rx Perform Med Rec) 1 each MISCELLANE ONCE PRN PRN Reason: Consult order Senna (Sennosides 8.6 Mg Tablet) 17.2 mg PO BEDTIME PRN PRN Reason: Constipation Sodium Chloride (0.9 % Sodium Chloride Flush 3 Ml Syringe) 3 ml IVFLUSH [facility] Last Admin: 08/01/22 07:58 Dose: 3 ml Documented By: ANALISA Trazodone HCl (Trazodone Hcl 50 Mg Tablet) 50 mg PO BEDTIME PRN PRN Reason: Insomnia Labs 07/30/22 05:45 07/30/22 05:45 Labs: Laboratory Results - last 24 hr 07/31/22 07/31/22 07/31/22 11:02 16:34 20:12 POC Glucose 260 H 213 H 242 H 08/01/22 08/01/22 07:44 09:24 POC Glucose 158 H 154 H Assessment and Plan (1) Epilepsy: Status: Acute (2) Recurrent seizures: Status: Acute Plan 51-year-old female with history of insulin-dependent type 2 diabetes, anxiety, dysphagia, vertigo, and temporal lobe epilepsy to be observed for breakthrough seizure activity # temporal lobe epilepsy, another seizure this morning -had been well managed on Vimpat, but increased stress and poorly sleep over last 2 months has resulted in increased seizure activity-both tonic-clonic and absence -loaded with Keppra? Continue Keppra 500 mg b.i.d. -continue Vimpat -seizure precautions -appreciate neurology input- recommends no change for now and to get record from Neurologist in [place] Ativan PRN for sizure in addition -CT head today since fell out of chair # vertigo with diplopia--resovved -not consistent with BPPV -given increased seizure activity, -MRI negaive, -appreciate Neuro input -meclizine p.r.n. # uncontrolled insulin-dependent type 2 diabetes with hyperglycemia -reports last hemoglobin A1c was around 10.0 -dose adjusted basal insulin -Humalog on sliding scale -POC glucose -diabetic diet # dysphagia- chronic -pills in applesauce/putting -ground/mechanical diet # severe obesity -weight loss efforts encouraged #anxiety--seen by Psych 07/31, recommend addtional klonopin 0.5 mg daily PRN DVT prophylaxis-Lovenox Dr Maguire (neurologist in [place]) [phone] , I tried calling and was on hold for nearly 20 minutes anticipate dc in a day without seizure Time Spent With Patient Time: Total time managing care of this patient today ____ minutes. Quality Stroke Does the patient have a stroke diagnosis?: No VTE Prior VTE?: No VTE Risk Level:: Medical - moderate - high VTE Device Contraindication: Treatment Not Indicated VTE Drug Contraindication: N/A - Med Ordered
[2022-08-01 11:32] LABS: Glucose, Whole Blood 165 mg/dL (60-115)
[2022-08-01 11:47] VITALS: BP 115/63; PULSE 94; RESP 20; TEMP 36.8; O2SAT 94
--- NOTE | 2022-08-01 12:58 | PC.NURSE ---
Patient is alert and oriented to self , time, place, and every. During lunch pt states she has a choking event. I arrived to the patient expelling clear saliva in tissues, patient was panting and red to the face. Patient was able to vocalize she had choked. Pt encouraged to take deep breathes and try to relax. Pt given two ice pack that she applied to back of her neck/face area and one does Clozopin prn for anxiety see MAR. Dr. Maury Massey was notified of the pt event. Speech evaluation was order. Will round on patient. At 13:00pm patient was sleeping comfortably with bilateral chest raises.
[2022-08-01 15:28] VITALS: BP 124/64; PULSE 83; RESP 16; TEMP 36.6; O2SAT 96
[2022-08-01 16:52] LABS: Glucose, Whole Blood 202 mg/dL (60-115)
[2022-08-01 19:55] VITALS: BP 125/68; PULSE 81; RESP 20; TEMP 36.4; O2SAT 92
[2022-08-01 21:20] LABS: Glucose, Whole Blood 230 mg/dL (60-115)
[2022-08-01] MEDS: levETIRAcetam Oral Soln 500 MG/5 ML PO (22:21)
[2022-08-01] MEDS: Insulin Glargine,Hum.rec.anlog 100 UNIT/ML 10 ML VIAL 46 UNIT SUBCUT (22:21)
[2022-08-01] MEDS: SUMAtriptan succinate 50 MG TABLET PO (22:36)
[2022-08-01] MEDS: ondansetron HCL 4 MG/2 ML VIAL IVPUSH (22:40)
[2022-08-01 23:43] VITALS: BP 110/55; PULSE 75; RESP 16; TEMP 36.4; O2SAT 93
[2022-08-02 03:52] VITALS: BP 101/55; PULSE 72; RESP 16; TEMP 36.1; O2SAT 93
[2022-08-02 07:09] VITALS: BP 98/54; PULSE 77; RESP 18; TEMP 36.6; O2SAT 94
[2022-08-02 07:23] LABS: Glucose, Whole Blood 128 mg/dL (60-115)
[2022-08-02] MEDS: clonazePAM 0.5 MG TABLET PO ×2 (08:30→21:09)
[2022-08-02] MEDS: levETIRAcetam Oral Soln 500 MG/5 ML PO ×2 (08:30→21:09)
[2022-08-02] MEDS: 0.9 % Sodium Chloride Flush 3 ML SYRINGE IVFLUSH ×3 (08:31→21:10)
--- NOTE | 2022-08-02 09:29 | HE.PHANOTE ---
Pharmacy has sent another bottle of patient own Vimpat to the floor, med loaded in pysix. Also pharmacy has received 3 more bottles of Vimpat from [facility] to be stored in the safe until patient needs. Betty Cadet, WilliamD
[2022-08-02 11:12] LABS: Glucose, Whole Blood 210 mg/dL (60-115)
[2022-08-02 12:00] VITALS: TEMP 36.1
[2022-08-02] MEDS: Insulin Lispro 100 UNIT/ML 3 ML VIAL SUBCUT ×3 (12:04→21:08)
--- NOTE | 2022-08-02 13:40 | P.PNIM_ITS ---
Subjective Subjective Date of Service: 08/03/22 Interval History: seizures Review of Systems no new episode Denies any chest pain or shortness of breath or fever chills Physical Exam Vital Signs: Vital Signs: Last Vital Signs Temp 98 F 08/02/22 07:09 Pulse 77 08/02/22 07:09 Resp 18 08/02/22 07:09 BP 98/54 L 08/02/22 07:09 Pulse Ox 94 08/02/22 07:09 O2 Del Method 08/02/22 07:09 BMI result Body Mass Index 37.0 General: was confused following seizure, but before that was completly clear Resp:? CTA bilateral CVS: S1,S2,RRR GI: +BS, NT, no distention Skin: No rash Neuro:? motor grossly intact, no noted scalp injry or laceration Psych: appropriate affect Objective Data Active Medications Acetaminophen (Acetaminophen 325 Mg Tablet) 650 mg PO Q6H PRN PRN Reason: Pain, Mild (Pain Scale 1-3) Last Admin: 08/01/22 14:32 Dose: 650 mg Documented By: ANALISA Clonazepam (Clonazepam 0.5 Mg Tablet) 0.5 mg PO BID [facility] Last Admin: 08/02/22 08:30 Dose: 0.5 mg Documented By: KELLY Clonazepam (Clonazepam 0.5 Mg Tablet) 0.5 mg PO DAILY PRN PRN Reason: Anxiety Last Admin: 08/01/22 12:15 Dose: 0.5 mg Documented By: ANALISA Enoxaparin Sodium (Enoxaparin Sodium 40 Mg/0.4 Ml Syringe) 40 mg SUBCUT Q24H [facility] Last Admin: 08/01/22 22:49 Dose: Not Given Documented By: JOYCE Non-Admin Reason: Patient Refused Glucose (Glucose Gel 15 Gm Gel..Gram.) 15 gm PO Q15M PRN; Protocol PRN Reason: per Hypoglycemia Standing Ord. Dextrose (D10) 250 mls @ 750 mls/hr IV Q15M PRN; Protocol PRN Reason: per Hypoglycemia Standing Ord. Insulin Glargine (Insulin Glargine,Hum.Rec.Anlog 100 Unit/Ml 10 Ml Vial) 46 unit SUBCUT BEDTIME [facility] Last Admin: 08/01/22 22:21 Dose: 46 unit Documented By: JOYCE Insulin Human Lispro (Insulin Lispro 100 Unit/Ml 3 Ml Vial) 0 unit SUBCUT QIDACHS [facility]; Protocol Last Admin: 08/02/22 12:04 Dose: 4 unit Documented By: KELLY Levetiracetam (Levetiracetam Oral Soln 500 Mg/5 Ml) 500 mg PO BID [facility] Last Admin: 08/02/22 08:30 Dose: 500 mg Documented By: KELLY Lidocaine (Lidocaine 4 % Patch Adh..Patch) 1 patch TRANSDERMA DAILY PRN PRN Reason: back pain Lorazepam (Lorazepam 2 Mg/Ml Vial) 1 mg IVPUSH Q2H PRN PRN Reason: Sedation Meclizine HCl (Meclizine Hcl 25 Mg Tablet) 25 mg PO Q8H PRN PRN Reason: Vertigo Pt Own (Lacosamide ( (Vimpat) 10mg/Ml)) 35 ml PO BID [facility] Last Admin: 08/02/22 10:23 Dose: 35 ml Documented By: KELLY Ondansetron HCl (Ondansetron Hcl 4 Mg/2 Ml Vial) 4 mg IVPUSH Q8H PRN PRN Reason: Nausea and Vomiting Last Admin: 08/01/22 22:40 Dose: 4 mg Documented By: JOYCE Pharmacy Consult (Consult Rx Perform Med Rec) 1 each MISCELLANE ONCE PRN PRN Reason: Consult order Senna (Sennosides 8.6 Mg Tablet) 17.2 mg PO BEDTIME PRN PRN Reason: Constipation Sodium Chloride (0.9 % Sodium Chloride Flush 3 Ml Syringe) 3 ml IVFLUSH QSHIFT [facility] Last Admin: 08/02/22 08:31 Dose: 3 ml Documented By: KELLY Trazodone HCl (Trazodone Hcl 50 Mg Tablet) 50 mg PO BEDTIME PRN PRN Reason: Insomnia Labs 07/30/22 05:45 07/30/22 05:45 Labs: Laboratory Results - last 24 hr 08/01/22 08/01/22 08/02/22 16:48 21:05 07:08 POC Glucose 202 H 230 H 128 H 08/02/22 11:03 POC Glucose 210 H Assessment and Plan (1) Epilepsy: Status: Acute (2) Recurrent seizures: Status: Acute Plan 51-year-old female with history of insulin-dependent type 2 diabetes, anxiety, dysphagia, vertigo, and temporal lobe epilepsy to be observed for breakthrough seizure activity # temporal lobe epilepsy, no new seizure episode -had been well managed on Vimpat, but increased stress and poorly sleep over last 2 months has resulted in increased seizure activity-both tonic-clonic and absence -loaded with Keppra? Continue Keppra 500 mg b.i.d. -continue Vimpat -seizure precautions -appreciate neurology input- recommends no change for now and to get record from Neurologist in [place] Ativan PRN for sizure in addition -CT head today since fell out of chair # vertigo with diplopia--resovved -not consistent with BPPV -given increased seizure activity, -MRI negaive, -appreciate Neuro input -meclizine p.r.n. # uncontrolled insulin-dependent type 2 diabetes with hyperglycemia -reports last hemoglobin A1c was around 10.0 -dose adjusted basal insulin -Humalog on sliding scale -POC glucose -diabetic diet # dysphagia- chronic -pills in applesauce/putting -ground/mechanical diet # severe obesity -weight loss efforts encouraged #anxiety--seen by Psych 07/31, recommend addtional klonopin 0.5 mg daily PRN DVT prophylaxis-Lovenox Dr Maguire (neurologist in [place]) [phone] , called again/message left anticipate dc in a day without seizure Time Spent With Patient Time: Total time managing care of this patient today ____ minutes. Quality Stroke Does the patient have a stroke diagnosis?: No VTE Prior VTE?: No VTE Risk Level:: Medical - moderate - high VTE Device Contraindication: Treatment Not Indicated VTE Drug Contraindication: N/A - Med Ordered
--- NOTE | 2022-08-02 15:16 | MHC.CM.PN ---
per rounds md to speak to neurologist about sezure medication no dc today
[2022-08-02 15:38] VITALS: BP 133/82; PULSE 97; RESP 17; TEMP 36.5; O2SAT 95
[2022-08-02 16:33] LABS: Glucose, Whole Blood 245 mg/dL (60-115)
[2022-08-02 18:16] LABS: Alanine Aminotransferase 20 U/L (0-31); Albumin Level 4.1 g/dL (3.5-5.0); Alkaline Phosphatase 161 U/L (39-117); Aspartate Amino Transferase 21 U/L (5-31); Bilirubin Direct < 0.2 mg/dL (0.0-0.5); Bilirubin Total 0.3 mg/dL (0.0-1.0); Total Protein 6.8 g/dL (6.5-8.0)
[2022-08-02 19:45] VITALS: BP 131/65; PULSE 80; RESP 18; TEMP 36.9; O2SAT 94
[2022-08-02 20:28] LABS: Glucose, Whole Blood 325 mg/dL (60-115)
[2022-08-02] MEDS: Enoxaparin Sodium 40 MG/0.4 ML SYRINGE SUBCUT (21:08)
[2022-08-02] MEDS: Insulin Glargine,Hum.rec.anlog 100 UNIT/ML 10 ML VIAL 46 UNIT SUBCUT (21:08)
[2022-08-03] VITALS: BP 101/57; PULSE 76; RESP 16; TEMP 36; O2SAT 94
[2022-08-03 03:50] VITALS: BP 119/59; PULSE 78; RESP 16; TEMP 36; O2SAT 93
[2022-08-03 07:15] VITALS: BP 121/73; PULSE 83; RESP 18; TEMP 36.9; O2SAT 93
[2022-08-03 07:26] LABS: Glucose, Whole Blood 142 mg/dL (60-115)
[2022-08-03] MEDS: clonazePAM 0.5 MG TABLET PO (09:04)
[2022-08-03] MEDS: levETIRAcetam Oral Soln 500 MG/5 ML PO (09:04)
[2022-08-03] MEDS: 0.9 % Sodium Chloride Flush 3 ML SYRINGE IVFLUSH (09:05)
[2022-08-03] MEDS: ondansetron HCL 4 MG/2 ML VIAL IVPUSH (09:20)
[2022-08-03 11:42] LABS: Glucose, Whole Blood 139 mg/dL (60-115)
[2022-08-03] MEDS: Ketorolac Tromethamine 15 MG/ML VIAL IVPUSH (12:38)
--- NOTE | 2022-08-03 13:33 | MHC.CM.PN ---
CM MET WITH PT REGARDING DC PLANNING SHE REPORTS BEING WORRIED ABOUT BEING ALONE AND WISHES SHE COULD GO TO A SNF CM EXPLAINED HER INSURANCE DOES NOT COVER [employer] C[employer] SHE IS AWARE A NEW PCP APPT WAS MADE FOR 08/11/[address] [place] [address] AND AFTER THAT THEY CAN MAKE A VNA REFERRAL SHE IS ALSO AWARE A REFERRAL WAS MADE TO [facility] TO ASSIST IN A [place] IF SHE QUALIFIES FOR MH, SHE IS AWARE HER PCP MUST WRITE A REFERRAL FOR CHARGE ACCOUNT IDENTIFICATION CLERK SERVICES IN THE MEANTIME, A REFERRAL WAS MADE TO [facility] TO ASSESS PT FOR [facility] PT WILL BE TRANSPORTED VIA [facility] THE NUMBER FOR THE SHUTTLE WAS ADDED TO HER DC WITH INSTRUCTIONS ON SETTING UP TRANSPORT TO MEDICAL APPTS
--- NOTE | 2022-08-03 13:45 | PM.DS ---
DS: Providers Provider Date of Service: 08/03/22 Date of admission: 07/29/22 19:20 Date of discharge: 08/03/22 Primary care physician: Unknown Physician Consults: 07/29/22 19:30 Consult to Neurology Routine Consulting Provider: [facility] Reason for consultation: breakthrough seizures 07/31/22 12:55 Consult to Psychiatry Stat Consulting Provider: Psych Covering Reason for consultation: Anxiety stress leading to more seizures Has provider been notified: No DS: Diagnosis Discharge Diagnosis (1) Epilepsy: Status: Acute (2) Recurrent seizures: Status: Acute DS: Summary Hospital Course Hospital Course: 51-year-old female with history of insulin-dependent type 2 diabetes, anxiety, dysphagia, vertigo, and temporal lobe epilepsy presents to the ED for evaluation of breakthrough seizures.? The patient follows with Neurology at [facility] and has been taking Vimpat which had previously been controlling her seizures well.? However she states she is going through a divorce from her with increased stress and poor sleep and for the last 2 months has been experiencing increase in seizure activity.? She states she gets both absence and tonic clonic seizures.? She does not drive.? She states she has she has also been having an increase in vertigo episodes associated with diplopia that occur randomly rather than with head movements or position changes.? She denies any gait instability.? On arrival, vital signs stable.? Hematology studies unremarkable.? Renal function and electrolyte levels normal.? Glucose 337.? Lactic acid 1.8.? Urinalysis with significant glucose and 1+ protein, otherwise unremarkable.? In the ED, patient loaded with Keppra.? To be observed overnight for breakthrough seizures. hospital course: Patient was admitted for seizure : Patient had episode of seizure initially -she is already taking Vimpat, added Keppra, no new seizure episode . Denies any new symptoms. CT and MRI of brain seems fine, seen by neurology recommended to continue Keppra, in addition thought to be her stress might be contributing to seizure also. So added small dose of clonazepam on as needed for anxiety. Initially had vertigo which is also resolved. Has some nausea. Otherwise improved. Added p.r.n. meclizine. Patient needs to follow-up with PCP and Neurology out patiently. As per her neurology clinic they are trying to arrange appointment for patient, patient was also strongly advised to follow-up and also check with her neurologist clinic in next few days for appointment. Her sister is also very encouraged to help her with going to the appointment. Plan: Continue Keppra in addition to vimpat. Monitor LFTs out patiently. conitnue small dose klonapin prn for anxiety Patient was strongly advice to follow-up out patiently with PCP and Neurology. Assessment and plan for initial time spent 50 minute, above was discussed with patient and her sister in detail length-they both understand and in agreement with the above plan. Time Spent with Patient Time attestation: Total time managing care of this patient today ____ minutes. Discharge coordination time: Greater than 30 minutes Quality: Safe Use of Opioids Does Pt have an Active Cancer Diagnosis on the Problem List?: No Quality: Stroke Does the patient have a stroke diagnosis?: No Physical Exam Vital Signs: Vital Signs: Last Vital Signs Temp 98.4 F 08/03/22 07:15 Pulse 83 08/03/22 07:15 Resp 18 08/03/22 07:15 BP 121/73 08/03/22 07:15 Pulse Ox 93 08/03/22 07:15 O2 Del Method Room Air 08/03/22 07:15 BMI result Body Mass Index 37.0 ?General: aox3 Resp:? CTA bilateral CVS: S1,S2,RRR GI: +BS, NT, no distention Skin: No rash Neuro:? motor grossly intact. Psych: appropriate affect DS: Data Data Completed and Pending Labs on day of discharge: Laboratory Results - last 24 hr 08/02/22 08/02/22 08/02/22 16:25 17:50 20:21 POC Glucose 245 H 325 H Total Bilirubin 0.3 Direct Bilirubin < 0.2 AST 21 ALT 20 Alkaline Phosphatase 161 H Total Protein 6.8 Albumin 4.1 08/03/22 08/03/22 07:18 11:36 POC Glucose 142 H 139 H Total Bilirubin Direct Bilirubin AST ALT Alkaline Phosphatase Total Protein Albumin Imaging Chest x-ray: Radiologist's impression: ITS Impressions Brain MRI 07/30/22 11:32 IMPRESSION: No acute intracranial process. Progressed nonspecific mild white matter signal changes as compared to prior imaging. Moderate volume loss in the right hippocampus along the mid and posterior segments compared to the normal left side. No associated signal abnormality evident. Severe left sphenoid sinus mucosal disease with central inspissated secretions; correlate for any underlying acute symptomatology. Head CT 07/31/22 11:01 IMPRESSION: No acute intracranial pathology. Discharge Plan Discharge Patient Disposition: Home, Self-Care Discharge Diagnosis: seizure dis. Referrals: [facility] [Other] - 1 Week (CALL WITH AT LEAST 48 HOURS NOTICE (THE MORE NOTICE THE BETTER) WHEN TRANSPORT IS NEEDED TO ANY APPTS AT [facility] [Outside] - 1 Week Brianna Leal FNP [Nurse Practitioner] - 08/11/22 2:15 pm (New patient appointment schedule. Call office if you need to reschedule ) Randal Bergman MD [Physician] - 2 Weeks (please call office if you can not get your own neurologist) Discharge Medications: New levetiracetam 500 mg/5 mL (5 mL) Solution 500 mg PO BID Qty: 300 0RF clonazepam 0.5 mg Tablet 0.5 mg PO DAILY PRN (Reason: Anxiety) Qty: 7 0RF Continued lacosamide [Vimpat] 10 mg/mL solution 350 mg PO BID Qty: 2100 0RF lidocaine 5 % adhesive patch,medicated 1 patch topical DAILY PRN (Reason: Pain) clonazepam 0.5 mg tablet,disintegrating 1 tab PO BID diclofenac sodium 1 % gel 1 applic topical QID Sancuso 3.1 mg/24 hour patch weekly 1 patch topical QWEEK insulin degludec [Tresiba FlexTouch U-200] 200 unit/mL (3 mL) insulin pen 80 unit subcut BEDTIME Humalog KwikPen Insulin 200 unit/mL (3 mL) insulin pen 60 unit subcut TID Discharge Orders: Discharge Order (Routine); Ordered 08/03/22 Ordered By: Hamilton Somers Diet: Advance to usual diet Activity on Discharge: As tolerated Stand Alone Forms: Patient Portal Discharge page Care Plan Goals: Patient was admitted for possible seizure: Has history of epilepsy, patient was taking Vimpat , seen by Neurology her excessive stress might also be contributing. Patient started on Keppra in addition to Vimpat. LFT seems fine. Non seizure episodes. Discussed with patient's neurologist Dr. Maguire's office-they are working on patient appointment, patient needs to call also to confirm appointment. Monitor LFTs out patiently. excessive stress situation -also added small dose Klonopin as needed. Health Concerns: as above. Plan of Treatment: as above. Assessment: as above. Patient Instructions: Epilepsy (DC)
--- NOTE | 2022-08-03 14:55 | HE.PHANOTE ---
PT own Vimpat was removed from pyxis and given to SAVANNAH Valenzuela to give to patient, as patient is being discharge
== END 2022-08-03 15:00 | disposition home or self-care (01) ==
LOC: HO.ED 17:05 → HO.EDOVER 19:36 → HO.S3 19:50
PROVIDERS: Internal Medicine; Physician Assistant; Admitting Provider Physician Assistant; Emergency Provider Emergency Medicine; Visit Provider Internal Medicine
DX: G40.909 Epilepsy, unspecified, not intractable, without status epilepticus (principal); F32.A Depression, unspecified; Z20.822 Contact with and (suspected) exposure to COVID-19; E11.9 Type 2 diabetes mellitus without complications; Z79.4 Long term (current) use of insulin; Z79.899 Other long term (current) drug therapy
CPT/HCPCS: 36415; 70450; 70551; 80048; 80076; 81001; 82550; 82947; 83605; 83735; 85025; 87635; 96365; 96366; 96372; 96374; 96375; 96376; 99221; 99285; J1650; J1885; J1953; J2060; J2405